=== PATIENT | female | born 1980 | race Caucasian/White ===

== ENCOUNTER → 2017-12-04 12:04 | Outpatient (CLI) | payer MEDICAID, SELFPAY ==
[2017-12-04 12:07] LABS: Microscopic, Urine URINE MICROSCOPIC (MICROSCOPIC)
[2017-12-04 12:29] LABS: Basophils % 0.3 % (0.1-2.0); Eosinophils # 0.1 K/mm3 (0.0-0.4); Eosinophils % 0.8 % (0.1-12.0); Hematocrit 48.5 % (37.0-47.0); Hemoglobin 15.3 g/dL (12.2-16.2); Lymphocytes # 3.2 K/mm3 (0.7-4.5); Lymphocytes % 34.1 K/mm3 (10-50); Mean Corpuscular HGB Conc 31.5 g/dL (31.8-35.4); Mean Corpuscular Hemoglobin 33.4 pg (27.0-31.2); Mean Corpuscular Volume 105.9 fl (81-99); Mean Platelet Volume 7.4 fl (7.4-10.4); Monocytes # 0.5 K/mm3 (0.1-1.0); Monocytes % 4.9 % (1.7-9.3); Neutrophils # 5.6 K/mm3 (1.8-7.8); Neutrophils % 59.9 % (37.0-80.0); Platelet Count 587 K/mm3 (142-424); Red Blood Count 4.58 M/mm3 (4.20-5.40); Red Cell Distribution Width 12.2 % (11.5-17.5); White Blood Count 9.3 K/mm3 (4.8-10.8)
[2017-12-04 12:42] LABS: Appearance,Urine CLEAR (Clear); Bilirubin,Urine Negative (Negative); Blood, Urine Negative (Negative); Color,Urine YELLOW (Yellow); Glucose,Urine (UA) Negative (Negative); Ketones,Urine Negative (Negative); Leukocyte Esterase,Urine Negative (Negative); Nitrate,Urine Negative (Negative); Protein,Urine Negative (Negative); Specific Gravity, Urine <= 1.005 (1.005-1.030); Urobilinogen,Urine 0.2 EU/dl (0.2)
[2017-12-04 12:43] LABS: Activated Partial Thrombo Time 25.2 seconds (23.6-34.0); INR 0.94 (0.9-1.1); Prothrombin Time 10.1 seconds (9.4-11.8)
[2017-12-04 12:50] LABS: Alanine Aminotransferase 33 U/L (12-78); Albumin Level 4.3 gm/dL (3.4-5.0); Alkaline Phosphatase 97 U/L (46-116); Anion Gap 9.3 mEq/L (5-15); Aspartate Amino Transferase 20 U/L (15-37); Bilirubin,Total 0.3 mg/dL (0.2-1.0); Blood Urea Nitrogen 6 mg/dL (7-18); Calcium 9.3 mg/dL (8.5-10.1); Carbon Dioxide 28 mmol/L (21.0-32.0); Chloride 101 mmol/L (98-107); Creatinine,Serum 0.85 mg/dL (0.55-1.02); Estimated Glomerular Filt Rate 76 ml/min (>60); GFR (African American) 92 ML/MIN (>60); Globulin 4.4 gm/dl (1.3-3.2); Glucose 118 mg/dL (74-106); Potassium 3.3 mmoL/L (3.5-5.1); Sodium 135 mmol/L (136-145); Total Protein,Serum 8.7 gm/dL (6.4-8.2)
[2017-12-04 12:51] LABS: Squamous Epithelial Cell,Urine Occasional #/hpf (0-5)
== END ==
PROVIDERS: Visit Provider Orthopaedic Surgery
DX: R79.1 Abnormal coagulation profile (principal); R79.89 Other specified abnormal findings of blood chemistry; N39.0 Urinary tract infection, site not specified
CPT/HCPCS: 36415; 80053; 81001; 85025; 85610; 85730

== ENCOUNTER 2025-04-29 15:42 | Outpatient (CLI) | payer MEDICAID, SELFPAY ==
[2025-04-29 17:40] LABS: Hematocrit 44.2 % (37.0-47.0); Hemoglobin 14.8 g/dL (12.2-16.2); Immature Granulocytes % 0.2 %; Mean Corpuscular HGB Conc 33.5 g/dL (31.8-35.4); Mean Corpuscular Hemoglobin 34.5 pg (27.0-31.2); Mean Corpuscular Volume 103.0 fl (81-99); Nucleated Red Blood Cells % 0 %; Platelet Count 378 K/mm3 (142-424); Red Blood Count 4.29 M/mm3 (4.20-5.40); Red Cell Distribution Width-SD 47.8 fL; White Blood Count 9.2 K/mm3 (4.8-10.8)
[2025-04-29 18:43] LABS: Hemoglobin A1C 5.1 % (4.0-6.0)
[2025-04-29 18:46] LABS: Chloride 102 mmol/L (98-107)
[2025-04-29 18:47] LABS: Albumin Level 3.8 g/dl (3.5-5.0); Potassium 4.0 mmoL/L (3.5-5.1); Sodium 139 mmol/L (136-145)
[2025-04-29 18:49] LABS: Alanine Aminotransferase 30 U/L (12-78); Anion Gap 12.0 mEq/L (5-15); Aspartate Amino Transferase 36 U/L (14-36); Blood Urea Nitrogen 13 mg/dl (7-17); Carbon Dioxide 29 mmol/L (22.0-30.0); Creatinine,Serum 0.70 mg/dl (0.52-1.04); Estimated Glomerular Filt Rate 91 ml/min (>60); GFR (African American) 111 ML/MIN (>60)
[2025-04-29 18:50] LABS: Albumin/Globulin Ratio 1.2 (1.1-1.8); Alkaline Phosphatase 78 U/L (38-126); Bilirubin,Total 0.3 mg/dl (0.2-1.3); Calcium 9.6 mg/dl (8.4-10.2); Globulin 3.3 g/dL (1.3-3.2); Glucose 59 mg/dl (74-100); Total Protein,Serum 7.1 g/dl (6.3-8.2)
[2025-04-29 18:53] LABS: Free T4 (Free Thyroxine) 0.74 ng/dl (0.78-2.19)
[2025-04-29 19:04] LABS: T4 (Thyroxine) 5.7 ug/dl (5.53-11.0)
[2025-04-29 19:22] LABS: Ferritin 53.8 ng/ml (6.24-137)
[2025-04-29 19:27] LABS: Thyroid Stimulating Hormone 3.24 uIU/mL (0.465-4.68)
[2025-04-29 19:57] LABS: Vitamin B12 543 pg/mL (239-931)
--- OUTSIDE RECORDS SUMMARY | 2025-04-30 11:23 | XMS_ITS | Clinical Summary ---
Author Organization Healthcare Address [address] [place] [address] Care Team Providers Care Vapor Coater Name Role Phone Unavailable Primary Care Provider [...]
== END 2025-04-29 23:59 | disposition home or self-care (01) ==
LOC: LAB.DROPOF 04-30 11:20
PROVIDERS: PCP Nurse Practitioner Family; Visit Provider Nurse Practitioner Family
DX: R63.4 Abnormal weight loss (principal); L65.9 Nonscarring hair loss, unspecified; R19.7 Diarrhea, unspecified
CPT/HCPCS: 80053; 80074; 82607; 82728; 83036; 84436; 84439; 84443; 84481; 85025; 86376; 86800; 87389; 87491; 87563; 87591; 87661

== ENCOUNTER 2025-04-30 09:57 | Outpatient (CLI) | payer MEDICAID, SELFPAY ==
--- OUTSIDE RECORDS SUMMARY | 2025-04-30 10:02 | XMS_ITS | Clinical Summary ---
Author Organization Healthcare Address [address] [place] [address] Care Team Providers Care Baker Helper Name Role Phone Unavailable Primary Care Provider Unavailabl e Family History Medical History Relation Name Comments Hypertension Other 1 Other cancer Other 2 Heart Problem Other 3 Relation Name Status Comments Other 1 Other 2 Other 3 Social History Tobacco Use Types Packs/Day Years Used Date Smoking Tobacco: Every Day Alcohol Use Standard Drinks/Week Comments No 0 (1 standard drink = 0.6 oz pur e alcohol) Comments Unknown Sex and Gender Information Value Date Recorded Sex Assigned at Not on file Legal Sex Female 7:19 PM EDT Gender Identity Not on file Sexual Orientation Not on file Last Filed Vital Signs Vital Sign Reading Time Taken Comments Blood Pressure - - Pulse - - Temperature - - Respiratory Rate - - Oxygen Saturation - - Inhaled Oxygen Concentration - - Weight 71.2 kg (157 lb 0.2 oz) 12/08/2015 3:15 P M EST Height 170.2 cm (5' 7 ) 12/08/2015 3:15 PM EST Body Mass Index 24.59 12/08/2015 3:15 PM EST Plan of Treatment Not on file
== END 2025-04-30 23:59 | disposition home or self-care (01) ==
LOC: LAB 09:58
PROVIDERS: PCP Nurse Practitioner Family; Visit Provider Nurse Practitioner Family
DX: R19.7 Diarrhea, unspecified (principal)
CPT/HCPCS: 80053; 80074; 82607; 82728; 83036; 84436; 84439; 84443; 84481; 85025; 86376; 86800; 87045; 87389; 87491; 87493; 87563; 87591; 87661

== ENCOUNTER 2025-05-05 13:28 | Outpatient (CLI) | payer MEDICAID, SELFPAY ==
--- OUTSIDE RECORDS SUMMARY | 2025-05-05 13:31 | XMS_ITS | Clinical Summary ---
Author Organization Healthcare Address [address] [place] [address] Care Team Providers Care Process Engineering Technician Name Role Phone Unavailable Primary Care Provider [...]
--- NOTE | 2025-05-05 14:00 | US_ITS ---
FINAL REPORT CLINICAL HISTORY: gross hematuria, hx of kidney stones-- urinary bladder FINDINGS: ULTRASOUND BLADDER WITH POST VOID RESIDUAL Bladder volumes were estimated based on 3 dimensional measurements, pre- and postvoid. Prevoid bladder volume: 160 mls Postvoid bladder volume: 24 mls. The postvoid bladder wall appears diffusely thickened. No discrete localized mass visualized. IMPRESSION: Estimated bladder volumes as above with small postvoid residual . Reviewed, Interpreted and Dictated by Usama Schwarz MD Transcribed by Viv Salas Authenticated and [facility]
--- NOTE | 2025-05-05 14:30 | US_ITS ---
FINAL REPORT TECHNIQUE: Sonographic images of the thyroid were obtained. CLINICAL HISTORY: Thyroid tenderness / hair loss COMPARISON: None FINDINGS: THYROID ULTRASOUND The right thyroid gland measures 3.6 cm. The left thyroid gland measures 3.5 cm. The parenchyma shows normal echogenicity. No dominant mass is seen. There may be mildly increased vascularity within both lobes, but no localized abnormality. IMPRESSION: Unremarkable thyroid evaluation. Reviewed, Interpreted and Dictated by Usama Schwarz MD Transcribed by Antonia Tyler Authenticated and . [facility]
--- NOTE | 2025-05-05 14:41 | XR_ITS ---
FINAL REPORT CLINICAL HISTORY: chronic neck pain, grinding limited rom muscle spasms COMPARISON: None FINDINGS: CERVICAL SPINE 6 views of the cervical spine were obtained. There is no acute fracture. There is no malalignment. The vertebrae are normal in height. There is moderate disc space narrowing C5-6 and C6-7. There are small posterior osteophytes C5-6 and C6-7. There is reversal of the normal cervical lordosis. The neural foramina are adequately patent. IMPRESSION: Hypertrophic changes of degenerative disc disease C5-6 and C6-7. Reviewed, Interpreted and Dictated by Usama Schwarz MD Transcribed by Antonia Tyler Authenticated and [facility]
--- NOTE | 2025-05-05 14:41 | XR_ITS ---
FINAL REPORT CLINICAL HISTORY: right foot injury, pain COMPARISON: None FINDINGS: RIGHT FOOT Three views of the right foot were obtained. There is no acute fracture or dislocation. The joint spaces appear normal. There is a lucent focus in the anterior calcaneus measuring 2 cm in diameter. This may represent a cyst or intraosseous lipoma. There is no soft tissue abnormality. IMPRESSION: 2 cm lucent focus in the anterior calcaneus appears to be nonaggressive, cyst versus intraosseous lipoma. Reviewed, Interpreted and Dictated by Usama Schwarz MD Transcribed by Antonia Tyler Authenticated and [facility]
--- NOTE | 2025-05-05 15:00 | US_ITS ---
FINAL REPORT TECHNIQUE: Ultrasound images of the kidneys were obtained. CLINICAL HISTORY: Hematuria, history of stones COMPARISON: None FINDINGS: Limited images of the liver parenchyma demonstrate normal echogenicity. The right kidney measures 11.6 cm in length. The left kidney measures 10.8 cm in length. There is normal echogenicity. There is no hydronephrosis. There is normal cortical thickness. There are tiny echogenic foci in both kidneys, stones versus calyceal margins. IMPRESSION: Tiny echogenic foci in both kidneys, stones versus calyceal margins. Reviewed, Interpreted and Dictated by Usama Schwarz MD Transcribed by Antonia Tyler Authenticated and [facility]
== END 2025-05-05 23:59 | disposition home or self-care (01) ==
LOC: RAD 13:29
PROVIDERS: PCP Nurse Practitioner Family; Visit Provider Nurse Practitioner Family
DX: M47.812 Spondylosis without myelopathy or radiculopathy, cervical region (principal); S99.921A Unspecified injury of right foot, initial encounter; E07.9 Disorder of thyroid, unspecified; L65.9 Nonscarring hair loss, unspecified; R93.422 Abnormal radiologic findings on diagnostic imaging of left kidney; R93.421 Abnormal radiologic findings on diagnostic imaging of right kidney; R93.6 Abnormal findings on diagnostic imaging of limbs; R39.198 Other difficulties with micturition; R31.0 Gross hematuria; Z87.442 Personal history of urinary calculi
CPT/HCPCS: 72050; 73630; 76536; 76770; 76830; 76857

== ENCOUNTER 2025-05-15 08:49 | Outpatient (CLI) | payer MEDICAID, SELFPAY ==
--- OUTSIDE RECORDS SUMMARY | 2025-05-15 08:58 | XMS_ITS | Clinical Summary ---
Author Organization Healthcare Address [address] [place] [address] Care Team Providers Care Ticket Puller Name Role Phone Unavailable Primary Care Provider [...]
--- NOTE | 2025-05-15 09:00 | MR_ITS ---
FINAL REPORT TECHNIQUE: Multiplanar and multisequence imaging of the brain was obtained without contrast. CLINICAL HISTORY: abnormal MRI of brain, hx of stroke. headaches COMPARISON: None FINDINGS: Brain parenchymal: There is no mass effect or midline shift. There is a 10 mm T2 hyperintense round lesion in the left basal ganglia, nonspecific. This does not have an appearance suggesting an acute infarct. There are a few other very small punctate foci of increased signal in the white matter bilaterally. Note is made of a low-lying right cerebellar inferior tonsil. Ventricles: The ventricles are symmetric in size and configuration without hydrocephalus. Extra-axial spaces: No extra-axial fluid collections. Diffusion imaging: No areas of restricted diffusion to suggest acute infarct. Flow voids: Flow voids within the major intracranial vessels are preserved. Soft tissues: Soft tissues are without acute abnormality. IMPRESSION: 10 mm T2 hyperintense round lesion in the left basal ganglia, nonspecific. This lesion is of uncertain etiology, and may be secondary to infection, inflammatory change, or neoplasm. Recommend direct comparison with prior examinations. If not available, consider a repeat MRI of the head with contrast. Reviewed, Interpreted and Dictated by Josey Toussaint MD Transcribed by Rosalie Malave Authenticated and [facility]
== END 2025-05-15 23:59 | disposition home or self-care (01) ==
PROVIDERS: PCP Nurse Practitioner Family; Visit Provider Nurse Practitioner Family
DX: G93.89 Other specified disorders of brain (principal); R90.89 Other abnormal findings on diagnostic imaging of central nervous system; R63.4 Abnormal weight loss; R51.9 Headache, unspecified; Z86.73 Personal history of transient ischemic attack (TIA), and cerebral infarction without residual deficits
CPT/HCPCS: 70551

== ENCOUNTER 2025-05-28 06:45 | Outpatient (CLI) | payer MEDICAID, SELFPAY ==
--- OUTSIDE RECORDS SUMMARY | 2025-05-28 06:47 | XMS_ITS | Clinical Summary ---
Author Organization Healthcare Address [address] [place] [address] Care Team Providers Care Straight Ruling Machine Operator Name Role Phone Unavailable Primary Care Provider [...]
--- NOTE | 2025-05-28 07:00 | MR_ITS ---
FINAL REPORT TECHNIQUE: Multiplanar and multisequence imaging of the brain was obtained before and after contrast administration. CLINICAL HISTORY: Abnormal MRI. HX STROKE. HEADACHE COMPARISON: 05/15/2025 FINDINGS: There is no mass effect or midline shift. There is no hydrocephalus. There has been no significant change in 9 mm lesion in the left basal ganglia which is T2 hyperintense and mildly hypointense on T1-weighted imaging. There are a few additional foci of T2 abnormal signal in the periventricular white matter which are stable. Posterior fossa is without acute abnormality. Small abnormality in the medial left cerebellum is stable. On diffusion-weighted imaging there is no restricted diffusion. There is no pathologic enhancement on postcontrast imaging. IMPRESSION: No acute abnormality. Stable abnormality in the left basal ganglia as stated on prior exam which may be related to infectious or inflammatory process, low-grade neoplasm or possible demyelinating disease. Recommend close interval follow-up. Reviewed, Interpreted and Dictated by Josey Toussaint MD Transcribed by Kathleen Tomas Authenticated and [facility]
[2025-05-28] MEDS: GADOTERIDOL INJ 20ML SYRINGE 14 ML IV (07:32)
[2025-05-28] MEDS: SODIUM CHLORIDE 0.9% 10ML SYR (RAD ONLY) 10 ML IV (07:32)
== END 2025-05-28 23:59 | disposition home or self-care (01) ==
LOC: RAD 06:46
PROVIDERS: PCP Nurse Practitioner Family; Visit Provider Nurse Practitioner Family
DX: R90.89 Other abnormal findings on diagnostic imaging of central nervous system (principal); R93.0 Abnormal findings on diagnostic imaging of skull and head, not elsewhere classified; R51.9 Headache, unspecified
CPT/HCPCS: 70553; A9576

== ENCOUNTER 2025-07-03 08:03 | Outpatient (CLI) | payer MEDICAID, SELFPAY ==
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
--- OUTSIDE RECORDS SUMMARY | 2025-06-06 13:50 | XMS_ITS | Encounter Summary ---
Author Organization [facility] Address [address] [place] [address] Care Team Providers Care International Coordinator Name Role Phone Maegan Benjamin FINAL ASSEMBLY INSPECTOR Primary Care Provider +1- [phone] Reason for Visit * Reason Comments Follow-up * Consultation (Urgent) - Closed Specialty Diagnoses / Procedures Referred By Savannah t Referred To Contact Hand Surgery Diagnoses Laceration involving tendon Bo Perez MD [address] [address] Phone: tel: fax: [facility] [address] [place] [address] Phone: tel: fax: Referral ID Status Reason Start Date Expiration Date V isits Requested Visits Authorized [id number] Closed Specialty Services Required 05/30/2025 11/29/2026 1 1 Encounter Details Date Type Department Care Team (Late st Contact Info) Description 06/06/2025 1:50 PM EDT Office Visit [facility] [address] [place] [address] Antonia Arora PA [address] [address] Laceration of right forearm, initial [...] belly laceration that was repaired in asimple [id number] fashion. Patient was then paced in the [...] form which was reviewed and scanned into [employer]. Negative for bleeding disorders, clotting disorders or [...] weakness right hand Exam complicated by pain [place]: Media Information RESULTS: IMAGING: I have personally reviewed right forearm x-rays from 05/29/2025 and there is no bony abnormalities per my personal report ASSESSMENT/PLAN: Lacey Mello is a 44 y.o. year-old female presenting for laceration of the right forearm with possible ulnar nerve injury. Patient's examination was difficult secondary to guarding and pain. [place] was normal she could make a fist [...] [facility] KIDNEY SURGERY N/A Kidney Surgery from [facility] [3] No current outpatient medications on file. [...] documented as of this encounter Care Teams International Coordinator Relationship Specialty Start Date End Date Maegan Benjamin APRN [address] [place] [address] PCP - General 05/29/25 documented as of this encounter
--- OUTSIDE RECORDS SUMMARY | 2025-06-17 13:20 | XMS_ITS | Encounter Summary ---
Author Organization [facility] Address [address] [place] [address] Care Team Providers Care Tailor Fitter Name Role Phone Maegan Benjamin APRN Primary Care Provider +1- [phone] Reason for Visit * Reason Comments Follow-up Follow-up Encounter Details Date Type Department Care Team (Late st Contact Info) Description 06/17/2025 1:20 PM EDT Office Visit [facility] [address] [place] [address] Maldonado Martinez MD [address] [address] Laceration of right forearm, initial [...] from the original note were not included. [facility] Department of Surgery Division of Plastic and [...] form which was reviewed and scanned into [employer]. Negative for bleeding disorders, clotting disorders or [...] 05/30/25 after punching a window while intoxicated. [place] Kaleigh was repeated today, which demonstrates scattered [...] Date BACK SURGERY N/A [facility] KIDNEY SURGERY N/A Kidney Surgery from [facility] [3] Current Outpatient Medications: amitriptyline (Elavil) 10 [...] documented as of this encounter Care Teams Tailor Fitter Relationship Specialty Start Date End Date Maegan Benjamin APRN [address] [place] [address] PCP - General 05/29/25 documented as of this encounter
--- NOTE | 2025-07-03 08:06 | XR_ITS ---
FINAL REPORT CLINICAL HISTORY: right wrist pain COMPARISON: None FINDINGS: RIGHT WRIST Three views demonstrate no acute fracture or dislocation. The visualized joint spaces are normally aligned. The soft tissues are unremarkable. IMPRESSION: No acute bony abnormality. Reviewed, Interpreted and Dictated by Usama Schwarz MD Transcribed by Viv Salas Authenticated and [facility]
--- NOTE | 2025-07-03 08:06 | XR_ITS ---
FINAL REPORT CLINICAL HISTORY: right forearm pain COMPARISON: None FINDINGS: 2 views of the right forearm were obtained. There is no acute fracture or dislocation. The joints are intact. There are no soft tissue abnormalities. IMPRESSION: No acute process. Reviewed, Interpreted and Dictated by Usama Schwarz MD Transcribed by Viv Salas Authenticated and [facility]
--- OUTSIDE RECORDS SUMMARY | 2025-07-03 08:06 | XMS_ITS | Encounter Summary ---
Author Organization Healthcare Address [address] [place] [address] Care Team Providers Care Educational Resource Center Teacher Name Role Phone Maegan Benjamin APRN Primary Care Provider +1- [phone] Encounter Details Date Type Department Care Team (Latest Contact Info) Description 05/29/2025 Travel Social History Tobacco Use Types Packs/Day Years Used Date Smoking Tobacco: Never Assessed Comments Unknown Sex and Gender Information Value Date Recorded Sex Assigned at Female 06/04/2025 7:39 AM EDT Legal Sex Female 7:19 PM EDT Gender Identity Not on file Sexual Orientation Not on file documented as of this encounter Plan of Treatment Not on file documented as of this encounter Visit Diagnoses Not on filedocumented in this encounter Care Teams Educational Resource Center Teacher Relationship Specialty Start Date End Date Maegan Benjamin APRN [address] [place] [address] PCP - General 05/29/25 documented as of this encounter
--- OUTSIDE RECORDS SUMMARY | 2025-07-03 08:07 | XMS_ITS | Encounter Summary ---
Author Organization [facility] Address [address] [place] [address] Care Team Providers Care Desktop Support Associate Name Role Phone Maegan Benjamin APRN Primary Care Provider +1- [phone] Encounter Details Date Type Department Care Team (Latest Contact Info) Description 05/30/2025 Travel Social History Tobacco Use Types Packs/Day Years Used Date Smoking Tobacco: Never Assessed Comments Unknown Sex and Gender Information Value Date Recorded Sex Assigned at Female 06/04/2025 7:39 AM EDT Legal Sex Female 7:19 PM EDT Gender Identity Not on file Sexual Orientation Not on file documented as of this encounter Functional Status * Calculated C-SSRS Risk Score (Lifetime/Recent) Answer Date of Assessment Author No Risk Indicated 05/30/2025 7:45 AM Justa Plascencia RN * Question Answer Date of Assessment Author 1. Wish to be (Past 1 Month) No 025 7:45 AM Justa Plascencia RN 2. Non-Specific Active Suici suzy Thoughts (Past 1 Month) No 05/30/2025 7:45 AM Justa Plascencia RN 6. Suicidal Behavior (Lifetime) No 7:45 AM Justa Plascencia RN documented as of this encounter Plan of Treatment Not on file documented as of this encounter Visit Diagnoses Not on filedocumented in this encounter Care Teams Desktop Support Associate Relationship Specialty Start Date End Date Maegan Benjamin APRN [address] [place] [address] PCP - General 05/29/25 documented as of this encounter
--- OUTSIDE RECORDS SUMMARY | 2025-07-03 08:07 | XMS_ITS | Encounter Summary ---
Author Organization Healthcare Address [address] [place] [address] Care Team Providers Care Medical Research Associate Name Role Phone Maegan Benjamin APRN Primary Care Provider +1- [phone] Encounter Details Date Type Department Care Team (Late st Contact Info) Description 06/03/2025 Telephone [facility] [address] [place] [address] Antonia Arora PA [address] [address] Social History Tobacco Use Types Packs/Day Years Used Date Smoking Tobacco: Never Assessed Comments Unknown Sex and Gender Information Value Date Recorded Sex Assigned at Female 06/04/2025 7:39 AM EDT Legal Sex Female 7:19 PM EDT Gender Identity Not on file Sexual Orientation Not on file documented as of this encounter Miscellaneous Notes * Telephone Encounter - Niko Giles - 06/03/2025 10:01 AM EDT Called pt. Left vm with date and time for upcoming appointment with Antonia APARICIO. Number left tocall if changes needed. documented in this encounter Plan of Treatment Not on file documented as of this encounter Visit Diagnoses Not on filedocumented in this encounter Care Teams Medical Research Associate Relationship Specialty Start Date End Date Maegan Benjamin APRN [address] [place] [address] PCP - General 05/29/25 documented as of this encounter
--- OUTSIDE RECORDS SUMMARY | 2025-07-03 08:08 | XMS_ITS | Encounter Summary ---
Author Organization Healthcare Address [address] [place] [address] Care Team Providers Care Dietary Services Manager Name Role Phone Maegan Benjamin APRN Primary Care Provider [phone]- [phone] Reason for Visit * Reason Onset Date Comments HCN - Patient Message 06/03/2025 Encounter Details Date Type Department Care Team (Late st Contact Info) Description 06/03/2025 Telephone [facility] [address] [place] [address] Antonia Arora, [place] [address] [phone] HCN - Patient Message Social History Tobacco Use Types Packs/Day Years Used Date Smoking Tobacco: Never Assessed Comments Unknown Sex and Gender Information Value Date Recorded Sex Assigned at Female 06/04/2025 7:39 AM EDT Legal Sex Female 7:19 PM EDT Gender Identity Not on file Sexual Orientation Not on file documented as of this encounter Miscellaneous Notes * Telephone Encounter - Evie Lopez RN - 06/03/2025 3:03 PM EDT Called and let her know it would be a good idea if someone can bring her, let her know its not a surgical appointment but it would still be good to have a milk tanker driver since one of her arms is injured. * Telephone Encounter - MazaEmileeMonserrat Armida - 06/03/2025 2:58 PM EDT Clinical Concern/Question Reason for Call: Maite-this patient is calling asking if she needs a milk tanker driver for her appt on 06/06/25 or if she can drive her self to/from appt. Please call to advise Best contact number: [phone] (mobile) Optimal time of day to reach caller: ANYTIME Additional comments/information from caller: None Note: Please do not reply to this message. Follow-up communication and further actions as a result of this message need to be communicated with the patient directly, if the patient is not active onMyChart. If the patient is active on MyChart, they will receive notification of the communication/outcome via [employer]. documented in this encounter Plan of Treatment Not on file documented as of this encounter Visit Diagnoses Not on filedocumented in this encounter Care Teams Dietary Services Manager Relationship Specialty Start Date End Date Maegan Benjamin APRN [address] [place] [address] PCP - General 05/29/25 documented as of this encounter
--- OUTSIDE RECORDS SUMMARY | 2025-07-03 08:09 | XMS_ITS | Encounter Summary ---
Author Organization Healthcare Address [address] [place] [address] Care Team Providers Care Crt Name Role Phone Maegan Benjamin APRN Primary Care Provider +1- [phone] Encounter Details Date Type Department Care Team (Latest Contact Info) Description 06/06/2025 Travel Social History Tobacco Use Types Packs/Day [...] Diagnoses Not on filedocumented in this encounter Additional Health Concerns Assessment Noted Time A Body Mass Index follow-up plan has been documented for the patient 06/06/2025 3:14 PM EDT documented as of this encounter Care Teams Crt Relationship Specialty Start Date End Date Maegan Benjamin APRN [address] [place] [address] PCP - General 05/29/25 documented as of this encounter
--- OUTSIDE RECORDS SUMMARY | 2025-07-03 08:09 | XMS_ITS | Encounter Summary ---
Author Organization Healthcare Address [address] [place] [address] Care Team Providers Care Student Success Coach Name Role Phone Maegan Benjamin APRN Primary Care Provider +1- [phone] Reason for Visit * Reason Onset Date Comments Med Refill 06/05/2025 Encounter Details Date Type Department Care Team (Late st Contact Info) Description 06/05/2025 Refill [facility] [address] [place] [address] Antonia Arora, [place] [address] [phone] Social History Tobacco Use Types Packs/Day Years [...] on filedocumented in this encounter Care Teams Student Success Coach Relationship Specialty Start Date End Date Maegan Benjamin APRN [address] [place] [address] PCP - General 05/29/25 documented as of this encounter
--- OUTSIDE RECORDS SUMMARY | 2025-07-03 08:10 | XMS_ITS | Encounter Summary ---
Author Organization Healthcare Address [address] [place] [address] Care Team Providers Care Spanish Moss Picker Name Role Phone Maegan Benjamin APRN Primary Care Provider +1- [phone] Encounter Details Date Type Department Care Team (Latest Contact Info) Description 06/17/2025 Travel Social History Tobacco Use Types Packs/Day [...] documented as of this encounter Care Teams Spanish Moss Picker Relationship Specialty Start Date End Date Maegan Benjamin APRN [address] [place] [address] PCP - General 05/29/25 documented as of this encounter
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
== END 2025-07-03 23:59 | disposition home or self-care (01) ==
LOC: RAD 08:04
PROVIDERS: PCP Nurse Practitioner Family; Visit Provider Physician Assistant Surgical
DX: M79.631 Pain in right forearm (principal); M25.531 Pain in right wrist
CPT/HCPCS: 73090; 73110

== ENCOUNTER 2025-07-21 11:00 | Outpatient (RCR) | payer MEDICAID, SELFPAY ==
--- NOTE | 2025-07-09 15:56 | HMH.OTOPEV ---
OT Evaluation Rehab OT Outpatient Eval Start: 07/09/25 14:52 Freq: Status: Active Protocol: Document 07/09/25 15:26 JENNY (Rec: 07/09/25 15:55 JENNY [id number]) E-signed By Marita Keita, OT Outpatient Therapy Subjective History Subjective History Pt is a 44 yr old female who presents to initial OT evaluation due to R hand weakness, numbness, and tingling. Pt reported they fell through a glass door and severed the nerve along the medial side at elbow along with some tendons. Pt reported the accident occurred roughly on June 06. Pt reported she has had spasms and pins/needles feeling in R hand and pinky side of hand. Pt has reported this feeling has improved slightly. Pt reported the pain has not been as sharp- more dull and achy with more feeling. Pt reported they are not allergic to latex and do not have a pacemaker. Pt reports they do not have a hx of a cancer dx, but have found spots on brain but bloodwork has not shown up it was cancer. Pt reports they had stitched the muscles and arm back in R elbow. Pt reports wearing a sling for 3 weeks, just recently fully out of sling. Pt is R hand dominant. 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 Pt could benefit from skilled OP OT services and interventions in order to address functional limitations in occupational performance and regain Ind in ADLs and IADLs to improve QOL and optimal occupational performance. Pt was sent home with light resistance theraputty and tendon glides. Pt given overview sheet of each exercises. Pt demo good understanding of exercises and able to demo back to therapist performance. New diagnosis of No: Has spots on brain, but has not came back as cancer cancer in past 12 in bloodwork months? Chief Complaint Pain,Spasms,Weakness,Decreased Supervisor Customer Complaint Service Strength,Decreased Coordination Symptom Type Ache,Sharp,Numbness,Tingling,Shooting Symptoms Relieved By Rest/Positioning,OTC Meds,Prescription Meds Symptoms Aggravated Physical Activity,Lifting By Prior Functional None Limitations Current Functional Lifting,Housework,Dressing,Driving,Sleeping,Recreation Limitations Activity Symptom Description Constant but Variable,Pain at Rest Level of pain today 8 (0-10) Pain scale - at its 4 best (0-10) Pain scale - at its 10 worst (0-10) Wrist/Hand Eval Wrist Range of Motion Right Wrist Limitations of Muscle Weakness,Pain Range of Motion Wrist Extension 70 Active Range of Motion (degrees) Wrist Extension 70 Passive Range of Motion (degrees) Wrist Flexion Active 80 Range of Motion ( degrees) Wrist Flexion 80 Passive Range of Motion (degrees) Wrist Radial 20 Deviation Active Range of Motion ( degrees) Wrist Radial 20 Deviation Passive Range of Motion ( degrees) Wrist Ulnar 30 Deviation Active Range of Motion ( degrees) Wrist Ulnar 30 Deviation Passive Range of Motion ( degrees) Finger Range of Motion Right Little Finger Finger ROM Muscle Weakness,Pain Limitations Finger 80 Metacarpophalangeal Flexion Active Range of Motion (degrees) Finger 90 Metacarpophalangeal Flexion Passive Range of Motion ( degrees) Finger 0 Metacarpophalangeal Extension Active Range of Motion ( degrees) Finger Proximal 75 Interphalangeal Flexion Active Range (degrees) Finger Proximal 80 Interphalangeal Flexion Passive Range (degrees) Finger Proximal 0 Interphalangeal Extension Active Range (degrees) Finger Distal 75 Interphalangeal Flexion Active Range of Motion (degrees) Finger Distal 80 Interphalangeal Flexion Passive Range Motion ( degrees) Finger Distal 0 Interphalangeal Extension Active Range Motion ( degrees) Wrist Manual Muscle Testing Right Wrist Extension 3- Fair- Strength Grade Wrist Flexion 3- Fair- Strength Grade Wrist Radial 3- Fair- Deviation Strength Grade Wrist Ulnar 3- Fair- Deviation Strength Grade Hand/Finger Manual Muscle testing Right Little Finger Finger Flexion 3- Fair- Strength Grade Finger Extension 3- Fair- Strength Grade Supervisor Customer Complaint Service/Pinch Strength Left Supervisor Customer Complaint Service Strength 70 Measurement (lbs) Right Supervisor Customer Complaint Service Strength 33 Measurement (lbs) QuickDASH Activities Please rate your ability to do the following activities in the last week by selecting the number below the appropriate response. 1. Open a tight or Unable new jar. 2. Do heavy Unable state inspector (e. g., wash alexander, floors). 3. Carry a shopping Severe difficulty bag or briefcase. 4. Wash your back. Severe difficulty 5. Use a knife to Severe difficulty cut food. 6. Recreational Unable activities in which you take some force or impact through your arm, shoulder, or hand (e.g., golf, hammering, tennis, etc.). 7. During the past Extremely week, to what extent has your arm, shoulder or hand problem interfered with your normal social activities with family, friends , neighbors or groups? 8. During the past Unable week, were you limited in your work or other regular daily activites as a result of your arm, shoulder or hand problem? 9. Arm, shoulder or Severe hand pain. 10. Tingling (pins Mild and needles) in your arm, shoulder or hand. 11. During the past So much difficulty that I can't sleep week, how much difficulty have you had sleeping because of the pain in your arm, shoulder or hand? Quick DASH 48 OT Patient Goals OT Patient Goals OT Short Term 1. Pt will improve assistant loan processor strength in R hand to 40 lbs, Patient Goals by reassessment. 2. Pt will improve endurance in TE to R hand for 15 minutes prior to rest, by reassessment. 3. Pt will improve subjective pain to 7/10 at worst in R hand, by reassessment. 4. Pt will be IND in HEP of theraputty and tendon glides to improve occupational performance, by reassessment. 5. Pt will improve MMT of R hand to 3+/5, by reassessment. 6. Pt will improve QuickDash Activities score to 40 or below, by reassessment. OT Direct Chill Caster Patient 1. Pt will improve assistant loan processor strength in R hand to 50 lbs. Goals 2. Pt will improve endurance in TE to R hand for 25 minutes prior to rest. 3. Pt will improve subjective pain to 5/10 at worst in R hand. 4. Pt will be IND in HEP of advanced strengthening exercises to improve occupational performance. 5. Pt will improve MMT of R hand to 4-/5. 6. Pt will improve QuickDash Activities score to 35 or below. OT Outpatient Assessment Impairments Problems/Impairments Impaired Strength,Impaired Endurance,Impaired Lifting, Impaired Dressing,Impaired Shower/Bathing,Impaired Household Care,Impaired Recreational Activities, Subjective C/O Pain,Impaired Self Care/Self Management Prognosis Rehab Potential Good Comment Pt could benefit from skilled OP OT services and interventions in order to address above deficits and improve QOL and optimal occupational performance in ADLs and IADLs. Clinical Impression Consistent with Yes Diagnosis Outpatient Therapy Plan of Care Treatment Plan May Include Therapeutic Exercise Yes Including Home Exercise Program Manual Therapy Yes Techniques Neuromuscular Re- Yes education Therapeutic Yes Activities to Return to Previous Functional/Work Level ADL/Self Care Yes Education Thermal Modalities Yes Electrical Yes Stimulation Ultrasound/ Yes Phonophoresis Iontophoresis Yes Parrafin Yes Orthotics/Bracing/ Yes Splinting Group Therapy for Yes Medicare Eval/Re-Eval Yes Frequency Times per week 2 Duration Number of Weeks 6 Addendums This patient is a No candidate for social or vocational rehab ? Patient/Guardian Yes verbally acknowledges understanding of treatment program and consents to further treatment? Patient/Guardian Yes verbally acknowledges understanding of diagnosis, prognosis and goals for treatment? Eval Complexity OT Charge 98996 - Moderate Complexity Shoulder/Elbow Eval Shoulder Objective Measurements Elbow Objective Measurements PHYSICIAN CERTIFICATION: I certify the specified therapy services for Lacey Mello are required, authorized, and reviewed every 30 days.
== END 2025-07-21 23:59 | disposition home or self-care (01) ==
LOC: OT 11:00
PROVIDERS: PCP Nurse Practitioner Family; Visit Provider Physician Assistant Surgical
DX: R20.2 Paresthesia of skin (principal)
CPT/HCPCS: 97166

== ENCOUNTER 2025-07-30 09:02 | Day surgery (SDC) | payer MEDICAID, SELFPAY ==
--- NOTE | 2025-07-24 16:12 | EXP.HP ---
History of Present Illness *Admission Date: 07/30/25 *History of present illness: Mrs. Mello is a 44-year-old female who is here for diagnostic EGD and colonoscopy. The patient reports nausea and postprandial vomiting. She has early satiety. She also reports some dysphagia that has occurred a few times but is new. She had lost more than 30 pounds but this now fluctuates. She does report generalized abdominal pain and reports a history of ulcers years ago. She has never had an EGD. The patient also struggles with bowel urgency and diarrhea that has been going on for more than 10 years. She has multiple bowel movements daily she also reports a lot of hemorrhoidal bleeding and prolapse. She did have hemorrhoidal surgery years ago. The patient has tried Imodium and recently was started on amitriptyline which helped a little bit. She reports no family history of esophageal, gastric or colon cancer. She reports no family history of colitis or Crohn's disease. The examination is deemed medically necessary for diagnostic EGD and colonoscopy. The patient has been seen, interviewed and examined prior to the procedure by both myself and the anesthesia provider. [facility] Disclaimer: The information contained in this section may have been updated after the patient was seen, as this information can be updated by other users. Medical History Fusion of lumbar spine Surgical History History of hip surgery B/L Hx of eye surgery exploratory eye surgery [place] teeth extracted H/O dilation and curettage History of lumbar spinal fusion Family History Other Cancer Heart attack Hyperlipidemia Hypertension Social History Smoking Status: Current every day smoker tobacco type: cigarettes packs per day: 1 quit status: considering quitting alcohol intake: never substance use type: denies use current occupational status: disabled Travel in the last 8 weeks?: None Have you lived/traveled outside US in past 30 days?: No Contact w/someone who lives/traveled outside US past 30 days?: No Exposure to someone with infectious disease in past 14 days?: No Do you have a fever (greater than 100.4 F or 38 C)?: No Have you tested positive for COVID-19?: No Exposed to someone with COVID-19 in past 14 days?: No Do you have a sore throat?: No Do you have a cough?: No Do you have any weakness?: No Do you have any diarrhea?: No Are you experiencing any unusual bleeding?: No Do you have any muscle aches/pain?: No Do you have any abdominal pain?: No Are you experiencing loss of taste or smell?: No Other Medical History Have you received the Pneumonia Vaccine: No Review of Systems Review of Systems Review of systems (narrative): Negative *Cardiovascular Comments: Negative *Gastrointestinal Comments: Negative *Genitourinary Comments: Negative *Musculoskeletal Comments: Negative *Neurologic Comments: Negative Meds Home Medications and Allergies Home Medications ?Medication ?Instructions ?Recorded ?Confirmed ?Type amitriptyline 10 mg tablet 10 mg PO HS #30 tabs 05/23/25 07/30/25 Rx meloxicam 15 mg tablet 15 mg PO DAILY #30 tabs 05/23/25 07/30/25 Rx diclofenac sodium 1 % topical gel 2 g topical QID #200 grams 06/30/25 07/30/25 Rx calcium polycarbophil 625 mg 1,250 mg PO DAILY 07/09/25 07/30/25 History tablet (FiberCon) citalopram 20 mg tablet 20 mg PO DAILY 30 days #30 tabs 07/10/25 07/30/25 Rx olanzapine 10 mg tablet 10 mg PO ONCE 30 days #30 tabs 07/10/25 07/30/25 Rx omeprazole 20 mg capsule,delayed 20 mg PO DAILY #30 caps 07/21/25 07/30/25 Rx release propranolol 40 mg tablet 40 mg PO BID headache #60 tabs 07/22/25 07/30/25 Rx rimegepant 75 mg disintegrating 75 mg PO ONCE PRN migraine 07/22/25 07/30/25 Rx tablet (Nurtec ODT) headache #8 tabs ibuprofen 800 mg tablet 800 mg PO Q6 07/30/25 07/30/25 History tizanidine 2 mg tablet 2 mg PO DAILY 07/30/25 07/30/25 History New Prescriptions to Start Prescriptions: Allergies Allergy/AdvReac Type Severity Reaction Status Date / Time bupropion Allergy Severe Anaphylaxis Verified 07/29/25 13:08 diclofenac AdvReac Intermediate STOMACH Verified 07/29/25 13:08 PAIN cephalexin AdvReac Mild NA-NAUSEA Verified 07/29/25 13:08 ciprofloxacin AdvReac Mild NA-NAUSEA Verified 07/29/25 13:08 erythromycin base AdvReac Mild NA-NAUSEA Verified 07/29/25 13:08 Penicillins AdvReac Mild NA-NAUSEA Verified 07/29/25 13:08 Exam *Routine HEENT Exam Head: Present normocephalic Eye: Present EOMI and PERRL ENT: Present mucous membranes moist *Routine Neck Exam Neck: Present supple *Routine Respiratory Exam Respiratory: Present CTA bilaterally *Routine Cardiovascular Exam Cardiovascular: Present RRR *Routine Abdominal Exam Abdominal: Present soft and normoactive bowel sounds; Absent tenderness *Routine Rectal Exam Rectal:: deferred *Routine Genitalia Exam Genitalia:: deferred *Routine Extremities Exam Extremities: Absent cyanosis, clubbing or edema *Routine Skin Exam Skin: Present warm; Absent rash *Routine Neurological Exam Neurological: Present alert and oriented X3 Assessment and Plan *Assessment and plan (1) Nausea & vomiting: Status: Acute Category: Medical Code(s): R11.2 - Nausea with vomiting, unspecified (2) Fecal urgency: Status: Acute Category: Medical Code(s): R15.2 - Fecal urgency (3) Dysphagia: Status: Acute Category: Medical Code(s): R13.10 - Dysphagia, unspecified (4) Early satiety: Status: Acute Category: Medical Code(s): R68.81 - Early satiety (5) Generalized abdominal pain: Status: Acute Category: Medical Code(s): R10.84 - Generalized abdominal pain (6) Chronic diarrhea: Status: Acute Category: Medical Code(s): K52.9 - Noninfective gastroenteritis and colitis, unspecified Plan A/P: 1. Nausea and vomiting, dysphagia with early satiety for upper endoscopy and diarrhea with hemorrhoidal bleeding for colonoscopy is the preprocedural diagnosis. The patient will be anesthetized/sedated using MAC sedation. The patient has been seen and examined. Cardiac and lung assessment prior to the examination is stable. Proceed with planned diagnostic EGD and colonoscopy.
[2025-07-29 13:30] VITALS: BMI 24.5
--- NOTE | 2025-07-30 06:30 | P.PCN_ITS ---
[facility] Procedure Note Date: 07/30/25 Time: 11:25 Procedure Note:: Colonoscopy Procedure Report: Colonoscopy with cold snare polypectomy, cold biopsies and hemorrhoid band ligation Endoscopist: Cole Campa II, MD Referring physician: MATHEW Carpenter Date of Procedure: July 30, 2025 Equipment: Olympus [id number] adult colonoscope Sedation: MAC sedation Indication: Mrs. Mello is a 44-year-old female who is here for diagnostic EGD and colonoscopy. The patient reports nausea and postprandial vomiting. She has early satiety. She also reports some dysphagia that has occurred a few times but is new. She had lost more than 30 pounds but this now fluctuates. She does report epigastric and generalized abdominal pain and reports a history of ulcers years ago. The patient also reports bloating, gassiness and belching. She does have some globus sensation. She has never had an EGD. The patient also struggles with bowel urgency and diarrhea that has been going on for more than 10 years. She has multiple bowel movements daily she also reports a lot of hemorrhoidal bleeding and prolapse. She did have hemorrhoidal surgery years ago. The patient has tried Imodium and recently was started on amitriptyline which helped a little bit. She reports no family history of esophageal or gastric cancer. She does report that her father may have had colon cancer in his late 40s. She reports no family history of colitis or Crohn's disease. The examination is deemed medically necessary for diagnostic EGD and colonoscopy. Procedure: Prior to the procedure, a history and physical exam was performed, and patient's medications and allergies were reviewed. The risks, benefits and alternatives of the sedation and procedure were discussed with the patient. All questions were answered and informed consent was obtained. The patient was brought to the procedure room. Patient identification and proposed procedure were verified by the physician and the nurse. The patient was placed in a left lateral decubitus position and the scope was passed under direct vision. Throughout the procedure, the patient's blood pressure, pulse, and oxygen saturations were monitored continuously. The colonoscopy was accomplished without difficulty. The patient tolerated the procedure well. Findings: On digital rectal examination there was normal rectal tone. There were no external hemorrhoids. The colonoscope was introduced through the anal canal to the rectum and advanced to the cecum. The ileocecal valve and appendiceal orifice were identified. The scope was advanced a short distance into the ileum which appeared grossly normal. The scope was then withdrawn into the colon. There was a single polyp (7 to 8 mm) in the descending colon removed via cold snare polypectomy. Random cold biopsies were taken from the right colon to rule out microscopic colitis. The remaining cecum, ascending, transverse, descending, sigmoid and rectum were grossly normal. There were no other mucosal abnormalities identified. Upon retroflexion within the rectum there were grade 2-3 internal hemorrhoids. 3 columns of hemorrhoids were banded using 3 bands with excellent ligation effect. The preparation was excellent throughout with [place] Preparation Score of 9. The cecal time was 14 minutes. Impression: 1. Descending colon polyp (7 to 8 mm) 2. Grade 2-3 internal hemorrhoids status post band ligation x 3 Plan: I will follow-up the polyp histology and recommend repeat screening/surveillance colonoscopy again in 5 years if the polyp is adenomatous. I would encourage bulking [id number] FiberCon 2 tablets every morning. If the colon biopsies are normal, we will discuss additional treatment options for her diarrhea (including Viberzi or alosetron).
--- NOTE | 2025-07-30 06:30 | P.PCN_ITS ---
[facility] Procedure Note Date: 07/30/25 Time: 11:05 Procedure Note:: Upper Endoscopy Procedure Report: Esophagogastroduodenoscopy with cold biopsies and TTS balloon dilation Endoscopost: Cole Campa II, MD Referring Physician: MATHEW Sun Date of Procedure: July 30, 2025 Equipment: Olympus [id number] standard upper endoscope Sedation: MAC sedation Indications: Mrs. Mello is a 44-year-old female who is here for diagnostic EGD and colonoscopy. The patient reports nausea and postprandial vomiting. She has early satiety. She also reports some dysphagia that has occurred a few times but is new. She had lost more than 30 pounds but this now fluctuates. She does report epigastric and generalized abdominal pain and reports a history of ulcers years ago. The patient also reports bloating, gassiness and belching. She does have some globus sensation. She has never had an EGD. The patient also struggles with bowel urgency and diarrhea that has been going on for more than 10 years. She has multiple bowel movements daily she also reports a lot of hemorrhoidal bleeding and prolapse. She did have hemorrhoidal surgery years ago. The patient has tried Imodium and recently was started on amitriptyline which helped a little bit. She reports no family history of esophageal or gastric cancer. She does report that her father may have had colon cancer in his late 40s. She reports no family history of colitis or Crohn's disease. The examination is deemed medically necessary for diagnostic EGD and colonoscopy. Procedure: Prior to the procedure, a history and physical exam was performed, and patient's medications and allergies were reviewed. The risks, benefits and alternatives of the sedation and procedure were discussed with the patient. All questions were answered and informed consent was obtained. The patient was brought to the procedure room. Patient identification and proposed procedure were verified by the physician and the nurse. The patient was placed in a left lateral decubitus position and the scope was passed under direct vision. Throughout the procedure, the patient's blood pressure, pulse, and oxygen saturations were monitored continuously. The upper GI endoscopy was accomplished without difficulty. The patient tolerated the procedure well. Findings: The scope was passed directly into the upper esophagus and advanced to the third portion of the duodenum. The post bulbar duodenum and duodenal bulb were normal with normal mucosa and conniventes. 2 cold biopsies were taken from the second portion of the duodenum for the disaccharidase assay. The scope was withdrawn through a normal duodenal bulb and pylorus into the stomach. The antrum was normal. There was reticular mosaic pattern of the body and fundus consistent with mild chronic gastritis and biopsies were obtained along the lesser curvature to rule out H. pylori. Upon retroflexion there was no hiatal hernia. The scope was then withdrawn into the esophagus. There was no evidence of reflux esophagitis or Hoover's. There were no rings, strictures, webs or corrugation. There were tertiary contractions and evidence of mild esophageal dysmotility. The entire esophagus was dilated to 60 [place]/20 mm with a TTS hydrostatic balloon. There was minimal resistance at the cricopharyngeus. The remainder of the esophageal mucosa was normal. Impression: 1. Nonerosive GERD with mild esophageal dysmotility 2. Mild chronic gastritis?rule out H. pylori Plan: I will follow-up the biopsies and discuss the findings with the patient and family. We will discuss treatment options. I will proceed with diagnostic colonoscopy.
[2025-07-30] MEDS: LACTATED RINGERS 1000ML 1,000 ML 50 ML IV (09:46)
[2025-07-30 09:47] VITALS: BP 136/84; PULSE 62; RESP 18; TEMP 36.5; O2SAT 99
[2025-07-30 10:00] LABS: Urine Pregnancy, HCG Qual. Negative (Negative)
--- NOTE | 2025-07-30 10:05 | P.PNANES_ITS ---
[facility] Disclaimer: The information contained in this section may have been updated after the patient was seen, as this information can be updated by other users. Medical History Fusion of lumbar spine Surgical History History of hip surgery B/L Hx of eye surgery exploratory eye surgery [place] teeth extracted H/O dilation and curettage History of lumbar spinal fusion Family History Other Cancer Heart attack Hyperlipidemia Hypertension Social History Smoking Status: Current every day smoker tobacco type: cigarettes packs per day: 1 quit status: considering quitting alcohol intake: never substance use type: denies use current occupational status: disabled Travel in the last 8 weeks?: None Have you lived/traveled outside US in past 30 days?: No Contact w/someone who lives/traveled outside US past 30 days?: No Exposure to someone with infectious disease in past 14 days?: No Do you have a fever (greater than 100.4 F or 38 C)?: No Have you tested positive for COVID-19?: No Exposed to someone with COVID-19 in past 14 days?: No Do you have a sore throat?: No Do you have a cough?: No Do you have any weakness?: No Do you have any diarrhea?: No Are you experiencing any unusual bleeding?: No Do you have any muscle aches/pain?: No Do you have any abdominal pain?: No Are you experiencing loss of taste or smell?: No [facility] Anesthesia Checklist Patient Identification Patient Identification: Arm Band Structural Data Admitted From: Home Planned Operative Procedure/s: EGD/Colonoscopy Consent for Planned Operative Procedure(s) Verified: Yes Verified Documents: Surgical Consent and History and Physical NPO Status Verified Time NPO: 08:00 (finished prep) Additional verifications Anesthesia Reactions: No Airway Assessment Mallampati Score:: Class II C-Spine Mobility Assessed: Yes TMJ Mobility Assessed: Yes Dentition: Good Dentition Neurological Assessment Level of Consciousness: Awake, Alert and Appropriate Anesthesia Plan Anesthesia Risk discussed: Yes Anesthesia Plan: Verified ASA Class: II Anesthesia Type: MAC
[2025-07-30 11:35] VITALS: BP 111/67; PULSE 65; RESP 16; TEMP 36.6; O2SAT 98
[2025-07-30 11:45] VITALS: BP 102/81; PULSE 76; RESP 18; TEMP 36.6; O2SAT 98
[2025-07-30 11:55] VITALS: BP 141/77; PULSE 63; RESP 18; TEMP 36.6; O2SAT 98
[2025-07-30 12:05] VITALS: BP 141/87; PULSE 64; RESP 18; TEMP 36.6; O2SAT 98
[2025-08-04 14:26] LABS: Interpretation Notes (.); Lactase 17.65 (>/= 14.0); Maltase 322.5 (>/= 110.0); Palatinase 22.4 (>/= 8.5); Reference Notes (.); Sucrase 80.79 (>/= 25.0)
== END 2025-07-30 12:05 | disposition home or self-care (01) ==
PROVIDERS: PCP Nurse Practitioner Family; Visit Provider Internal Medicine Gastroenterology
PROC: 0DJ08ZZ Inspection of Upper Intestinal Tract, Via Natural or Artificial Opening Endoscopic (ICD-10-PCS; CPT 45378; principal; 2025-07-30 10:30)
DX: D12.4 Benign neoplasm of descending colon (principal); K21.9 Gastro-esophageal reflux disease without esophagitis; K52.9 Noninfective gastroenteritis and colitis, unspecified; K22.4 Dyskinesia of esophagus; K64.1 Second degree hemorrhoids; K64.2 Third degree hemorrhoids; F17.210 Nicotine dependence, cigarettes, uncomplicated; Z87.11 Personal history of peptic ulcer disease; Z88.1 Allergy status to other antibiotic agents; Z88.6 Allergy status to analgesic agent
CPT/HCPCS: 43239; 43249; 45380; 45385; 46221; 81025; 82657; C1726; C1889; J2003; J2704; J7120

== ENCOUNTER 2025-08-04 14:17 | Outpatient (CLI) | payer MEDICAID, SELFPAY ==
--- OUTSIDE RECORDS SUMMARY | 2025-06-06 12:50 | XMS_ITS | Encounter Summary ---
Author Organization [facility] Address [address] [place] [address] Care Team Providers Care Sales Consulting Director Name Role Phone Maegan Benjamin DIRECTOR RECORDS MANAGEMENT Primary Care Provider +1- [phone] Reason for Visit * Reason Comments Follow-up * Consultation (Urgent) - Closed Specialty Diagnoses / Procedures Referred By Savannah t Referred To Contact Hand Surgery Diagnoses Laceration involving tendon Bo Perez MD [address] [address] Phone: tel: fax: [facility] [address] [place] [address] Phone: tel: fax: Referral ID Status Reason Start Date Expiration Date V isits Requested Visits Authorized [id number] Closed Specialty Services Required 05/30/2025 11/29/2026 1 1 Encounter Details Date Type Department Care Team (Late st Contact Info) Description 06/06/2025 1:50 PM EDT Office Visit [facility] [address] [place] [address] Antonia Arora PA [address] [address] Laceration of right forearm, initial encounter (Primary Dx) Social History Tobacco Use Types Packs/Day Years Used Date Smoking Tobacco: Every Day Cigarettes Smokeless Tobacco: Never Tobacco Cessation:Ready to Q uit: Not Asked; Counseling Given: Not Answered Alcohol Use Standard Drinks/Week Comments No 0 [...] Sign Reading Time Taken Comments Blood Pressure 162/83 06/06/2025 2:04 PM EDT Pulse 91 06/06/2025 2:04 PM EDT Temperature - - Respiratory Rate - - Oxygen Saturation 97% 06/06/2025 2:04 PM EDT Inhaled Oxygen Concentration - - Weight 69.4 kg (153 lb) 06/06/2025 2:04 PM EDT Height 170.2 cm (5' 7 ) 06/06/2025 2:04 PM EDT Body Mass Index 23.96 06/06/2025 2:04 PM EDT documented in this encounter Miscellaneous Notes * Progress Notes - Antonia Arora PA - 06/06/2025 1:50 PM EDT Images from the original note were not included. Hand Surgery Clinic Note CC: Forearm laceration HISTORY OF PRESENT ILLNESS: Lacey Mello is a 44 y.o. Right-hand dominant disabled female who does have history of multiple strokes, chronic back pain, 2 pack per day nicotine use who presented to the emergency department 05/30/2025 with a right forearm laceration after she punched a window while intoxicated. In the emergency department was noted that she may possibly have ulnar nerve injury to the level of intoxication this could not be determined. Was an obvious FCU muscle belly laceration that was repaired in asimple [id number] fashion. Patient was then paced in the splint sent here for continued evaluation and management. Patient is guarding the laceration site pretty vehemently. She is emotionally upset and crying on exam PAST MEDICAL HISTORY: Past Medical History[1] PAST SURGICAL HISTORY: Surgical History[2] MEDICATIONS: Current Medications[3] ALLERGIES: Allergies[4] SOCIAL HISTORY: Social History[5] FAMILY HISTORY Family history is as noted on the history intake form which was reviewed and scanned into [employer]. Negative for bleeding disorders, clotting disorders or anesthesia issues. REVIEW OF SYSTEMS ROS: 14 point review of systems was completed with the patient and documented on written assessmentat this time and was negative except as noted in the HPI. PHYSICAL EXAM: GEN: Healthy appearing, alert, no acute distress SKIN: Normal color, texture; no rashes or lesions HEENT: Normocephalic, no signs of trauma, anicteric, neck with normal ROM PULM: Normal respiratory effort on room air, no audible stridor or wheeze CV: Right upper extremities well-perfused PSYCH: Pleasant and normal affect NEURO: Alert and oriented x 3. Cranial nerves grossly intact, speech intact EXTREMITY: Active and passive range of motion of the flexors is intact small ring long index and thumb global weakness right hand Exam complicated by pain [place]: Media Information RESULTS: IMAGING: I have personally reviewed right forearm x-rays from 05/29/2025 and there is no bony abnormalities per my personal report ASSESSMENT/PLAN: Lacey Mello is a 44 y.o. year-old female presenting for laceration of the right forearm with possible ulnar nerve injury. Patient's examination was difficult secondary to guarding and pain. [place] was normal she could make a fist and her flexors and extensor seem intact. Patient has unusual pattern it her [place] Kaleigh and I think patient has neurapraxia secondary to swelling not a true laceration. I think it is most prudent at this time to give the patient some time for healing and reexamination prior to any surgical intervention. I will have the patient come back to see Dr. Martinez in 2 weeks for reexamination and a new [place] Kaleigh. I have showed the patient how to do some gentle active range of motion exercises in the interim. I think she should have a therapy appointment at her next visit. [1] Past Medical History: Diagnosis Date Anxiety Depression Personal history of other diseases of the circulatory system History of hypertension Personal history of other mental and behavioral disorders History of affective disorder Personal history of other mental and behavioral disorders History of depression Personal history of traumatic brain injury History of concussion [2] Past Surgical History: Procedure Laterality Date BACK SURGERY N/A Back Surgery from [facility] KIDNEY SURGERY N/A Kidney Surgery from [facility] [3] No current outpatient medications on file. No current facility-administered medications for this visit. [4] No Known Allergies [5] Social History Tobacco Use Smoking status: Every Day Substance Use Topics Alcohol use: No Drug use: Never Comment: Drug use: No drug use documented in this encounter Plan of Treatment Not on file documented as of this encounter Visit Diagnoses Diagnosis Laceration of right forearm, initial encounter- Primary documented in this encounter Additional Health Concerns Assessment Noted Time A Body Mass Index follow-up plan has been documented for the patient 06/06/2025 3:14 PM EDT documented as of this encounter Care Teams Sales Consulting Director Relationship Specialty Start Date End Date Maegan Benjamin APRN [address] [place] [address] PCP - General 05/29/25 documented as of this encounter
--- OUTSIDE RECORDS SUMMARY | 2025-06-17 12:20 | XMS_ITS | Encounter Summary ---
Author Organization [facility] Address [address] [place] [address] Care Team Providers Care Explosive Ordnance Handler Name Role Phone Maegan Benjamin APRN Primary Care Provider +1- [phone] Reason for Visit * Reason Comments Follow-up Follow-up Encounter Details Date Type Department Care Team (Late st Contact Info) Description 06/17/2025 1:20 PM EDT Office Visit [facility] [address] [place] [address] Maldonado Martinez MD [address] [address] Laceration of right forearm, initial encounter (Primary Dx) Social History Tobacco Use Types Packs/Day Years Used Date Smoking Tobacco: Every Day Cigarettes Smokeless Tobacco: Never Alcohol Use Standard Drinks/Week Comments No 0 [...] Sign Reading Time Taken Comments Blood Pressure 133/90 06/17/2025 1:21 PM EDT Pulse 83 06/17/2025 1:21 PM EDT Temperature - - Respiratory Rate - - Oxygen Saturation 95% 06/17/2025 1:21 PM EDT Inhaled Oxygen Concentration - - Weight 63.6 kg (140 lb 3.2 oz) 06/17/2025 1:21 P M EDT Height 170.2 cm (5' 7 ) 06/17/2025 1:21 PM EDT Body Mass Index 21.96 06/17/2025 1:21 PM EDT documented in this encounter Miscellaneous Notes * Progress Notes - Christy Whitman MD - 06/17/2025 1:20 PM EDT Images from the original note were not included. [facility] Department of Surgery Division of Plastic and Reconstructive Surgery Plastic Surgery Clinic Note HISTORY OF PRESENT ILLNESS This is a second opinion consultation with this 44 y.o. year old female seen today at the request of Maegan Harry APRN for evaluation of right hand pain. Lacey Mello is a 44 y.o. RHD female with history of multiple strokes, chronic back pain, and 2 PPD nicotine use presenting for evaluation of right hand pain after a right forearm laceration sustained on 05/30/25 after punching a window while intoxicated. Her laceration was repaired in the ED, but since the incident she has had severe pain in her arm and hand that have prevented her from using the arm at all. She reports shooting, burning pains down her arm on both the volar and dorsal aspects, as well as glass like sharp pains whenever the arm or hand is touched. She is wearing a sling and is guarding her arm very closely. She also says that she has chronic neck pain that is causing pain and weakness going down her arm, and she cannot determine how much of her symptoms are caused by her neck rather than her injury. She is unable to localize any particular areas. PAST MEDICAL HISTORY Updated and documented in EMR, reviewed during this appointment. Past Medical History[1] PAST SURGICAL HISTORY Updated and documented in EMR, reviewed during this appointment Surgical History[2] CURRENT MEDICATIONS Current Medications[3] ALLERGIES Bupropion and Erythromycin SOCIAL HISTORY Social History Socioeconomic History Marital status: Unknown Spouse name: Not on file Number of children: Not on file Years of education: Not on file Highest education level: Not on file Occupational History Not on file Tobacco Use Smoking status: Every Day Types: Cigarettes Smokeless tobacco: Never Vaping Use Vaping status: Some Days Substance and Sexual Activity Alcohol use: No Drug use: Never Comment: Drug use: No drug use Sexual activity: Defer Other Topics Concern Not on file Social History Narrative Merged History Encounter Social Drivers of Health Financial Resource Strain: Not on file Food Insecurity: Not on file Transportation Needs: Not on file Physical Activity: Not on file Stress: Not on file Social Connections: Not on file Intimate Partner Violence: Not on file Housing Stability: Not on file FAMILY HISTORY Family history is as noted on the history intake form which was reviewed and scanned into [employer]. Negative for bleeding disorders, clotting disorders or anesthesia issues. SYSTEMS REVIEW A complete 14 point review of systems was discussed with the patient at this time and was negative except as noted in the HPI. PHYSICAL EXAMINATION Vital Signs: Vitals: 06/17/25 1321 BP: (!) 133/90 BP Location: Left arm Pulse: 83 SpO2: 95% Weight: 63.6 kg (140 lb 3.2 oz) Height: 1.702 m (5' 7 ) Body mass index is 21.96 kg/m??. General: GEN: Healthy appearing, alert, no acute distress SKIN: Normal color, texture; no rashes or lesions HEENT: Normocephalic, no signs of trauma, anicteric, neck with normal ROM PULM: Normal respiratory effort on room air, no audible stridor or wheeze CV: Regular rate and rhythm, palpable radial pulses PSYCH: Pleasant and normal affect NEURO: Alert and oriented x 3. Cranial nerves grossly intact, speech intact LYMPH: No palpable lymphadenopathy EXTREMITY: Focused exam of the right upper extremity reveals intact flexors and extensors. Pain outof proportion to exam. No Wartenburg's sign, Froment's, Tinel's. Laceration well healed, sutures inplace without surrounding erythema. Mild edema throughout. Sensation in nonanatomic pattern. RADIOGRAPHS/DATA None IMPRESSION/PLAN Lacey Mello is a 44 y.o. female with history of multiple strokes, chronic back pain, and 2PPD nicotine use presenting for evaluation of right hand pain after a right forearm laceration sustained on 05/30/25 after punching a window while intoxicated. [place] Kaleigh was repeated today, which demonstrates scattered areas of normal sensation with areas of diminished light touch. Exam reveals paresthesias and neuropathic pain in no particular nerve distribution, as well as symptoms proximal to the laceration, which suggests cervical etiology rather than due to the laceration. In addition, she may still be swollen and have a neuropraxia. We discussed her SW results, which demonstrate some improvement but no discernable pattern compared to her previous test. At this point, we would recommend following up with her spine surgeon to further explore more proximal issues. We also encouraged her to not use her sling, as doing so may be causing her to compress her nerves more in her shoulder and neck. We encouraged her to gradually increase her range of motion and activity in her upper extremity as tolerated. OT was offered. She can return to clinic as needed if there is anything we can assist with. The patient indicates understanding of these instructions and agrees with the plan. Christy Whitman MD Plastic & Reconstructive Surgery [1] Past Medical History: Diagnosis Date Anxiety [...] Date BACK SURGERY N/A Back Surgery from [facility] KIDNEY SURGERY N/A Kidney Surgery from [facility] [3] Current Outpatient Medications: amitriptyline (Elavil) 10 MG tablet, Take 1 tablet by mouth nightly., Disp: , Rfl: citalopram (CeleXA) 10 MG tablet, Take 1 tablet by mouth daily., Disp: , Rfl: ibuprofen 200 MG tablet, Take 4 tablets by mouth every 6 hours as needed for mild pain., Disp: , Rfl: meloxicam (Mobic) 15 MG tablet, Take 1 tablet by mouth daily., Disp: , Rfl: OLANZapine (ZyPREXA) 5 MG tablet, Take 1 tablet by mouth daily., Disp: , Rfl: omeprazole (PriLOSEC) [address] capsule, Take 1 capsule by mouth daily., Disp: , Rfl: ondansetron ODT (Zofran-ODT) 4 MG disintegrating tablet, DISSOLVE ONE TABLET BY MOUTH EVERY 8 HOURSAS NEEDED FOR NAUSEA AND VOMITING, Disp: , Rfl: tiZANidine (Zanaflex) 2 MG tablet, TAKE ONE TABLET BY MOUTH EVERY 8 HOURS NEEDED FOR muscle spasticity, Disp: , Rfl: Cosigned by Maldonado Martinez MD at 06/26/2025 10:02 PM EDT Associated attestation - Maldonado Martinez MD - 06/26/2025 10:02 PM EDT I saw and evaluated the patient with the resident/fellow. I discussed the case with the resident/fellow and agree with the findings and plan as documented. documented in this encounter Plan of Treatment Not on file documented as of this encounter Visit Diagnoses Diagnosis Laceration of right forearm, initial encounter- Primary documented in this encounter Additional Health Concerns Assessment Noted Time A Body Mass Index follow-up plan has been documented for the patient 06/26/2025 10:03 PM EDT documented as of this encounter Care Teams Explosive Ordnance Handler Relationship Specialty Start Date End Date Maegan Benjamin APRN [address] [place] [address] PCP - General 05/29/25 documented as of this encounter
--- OUTSIDE RECORDS SUMMARY | 2025-07-04 14:30 | XMS_ITS | Encounter Summary ---
Author Organization [employer] ([place], [place], [place], [place], [place]) Address [address] [place] [address] Care Team Providers Care Real Estate Assistant Name Role Phone Unavailable Primary Care Provider Unavailabl e Reason for Visit * Reason Comments Urinary Retention Pt was referred by P CP * Consultation (Routine) - Closed Specialty Diagnoses / Procedures Referred By Savannah t Referred To Contact Urology Diagnoses Retention of urine Maegan Benjamin APRN [address] [address] Phone: tel: fax: [facility] U[facility] - [address] [facility] [address] [place] [address] Phone: tel: fax: Referral ID Status Reason Start Date Expiration Date V isits Requested Visits Authorized [id number] Closed Specialty Services Required 06/06/2025 06/06/2026 1 1 Encounter Details Date Type Department Care Team (Late st Contact Info) Description 07/04/2025 3:30 PM EDT Office Visit [facility] - [address] [facility] [address] [place] [address] [place] [address] [place] [address] [address] [place] [address] Retention of urine (Primary Dx) Social History Tobacco Use Types Packs/Day Years Used Date Smoking Tobacco: Every Day Cigarettes Smokeless Tobacco: Never Tobacco Cessation:Ready to Q uit: Not Asked; Counseling Given: Not Answered Alcohol Use Standard Drinks/Week Comments Not Currently 0 (1 standard drink = 0.6 oz pur e alcohol) Comments Unknown Sex and Gender Information Value Date Recorded Sex Assigned at Not on file Legal Sex Female 6:51 PM CDT Gender Identity Not on file Sexual Orientation Not on file documented as of this encounter Last Filed Vital Signs Vital Sign Reading Time Taken Comments Blood Pressure 121/79 07/04/2025 3:18 PM EDT Pulse 61 07/04/2025 3:18 PM EDT Temperature 36.4 C (97.5 F) 07/04/2025 3:18 PM EDT Respiratory Rate - - Oxygen Saturation 94% 07/04/2025 3:18 PM EDT Inhaled Oxygen Concentration - - Weight - - Height - - Body Mass Index - - documented in this encounter Progress Notes * Marciano Chandler MD - 07/04/2025 3:30 PM EDT Subjective: Patient ID: Lacey Mello is a 44 y.o. female. Chief Complaint: Urinary Retention (Pt was referred by PCP ) HPI 44-year-old female who is having voiding difficulties for the last several months. She has a very difficult time emptying her bladder. She voids small amounts of urine at the time. Sometimes she has some dysuria. There is been no hematuria. She experiences urgency and urge incontinence. She hasnocturia 1-3 times at night. She has been worked up for neurological issues as well. Postvoid residual was 35 mL and the urine Review of Systems Constitutional: Negative. HENT: Negative. Respiratory: Negative. Cardiovascular: Negative. Gastrointestinal: Negative. Genitourinary: Positive for difficulty urinating and urgency. There are no active problems to display for this patient. Past Medical History: Diagnosis Date History of multiple strokes Past Surgical Hx: she Past Surgical History: Procedure Laterality Date ANTERIOR FUSION CERVICAL SPINE Social Hx:she reports that she has been smoking cigarettes. She has never used smokeless tobacco. She reports that she does not currently use alcohol. Social History Social History Narrative Not on file Family Hx: her family history is not on file. Allergies Allergen Reactions Bupropion Other (See Comments) Current Outpatient Medications on File Prior to Visit Medication Sig Dispense Refill amitriptyline (ELAVIL) 10 MG tablet Take 1 tablet (10 mg total) by mouth nightly. cefadroxil (DURICEF) 500 MG capsule Take 1 capsule (500 mg total) by mouth 2 (two) times daily. citalopram (CeleXA) 10 MG tablet Take 1 tablet (10 mg total) by mouth daily. diclofenac sodium 1 % gel Apply 2 g topically 4 (four) times daily. fluconazole (DIFLUCAN) 100 MG tablet Take 1 tablet (100 mg total) by mouth daily. ibuprofen (MOTRIN) 800 MG tablet Take 1 tablet (800 mg total) by mouth every 8 (eight) hours as needed. lidocaine-prilocaine (EMLA) 2.5-2.5 % cream Apply topically as needed. meloxicam (MOBIC) 15 MG tablet Take 1 tablet (15 mg total) by mouth daily. OLANZapine (ZyPREXA) 10 MG tablet Take 0.5 tablets (5 mg total) by mouth 2 (two) times daily. omeprazole (PriLOSEC) 20 MG capsule Take 1 capsule (20 mg total) by mouth daily. ondansetron (ZOFRAN-ODT) 4 MG disintegrating tablet 1 tablet (4 mg total) every 8 (eight) hours as needed. No current facility-administered medications on file prior to visit. No results found for: PSA , NA , K , CL , CO2 , GLUCOSE , CALCIUM , EGFR , TEBG , WBC , RBC , HGB , HCT , MCV , MCH , MCHC , RDW , PLT , MPV No results found for: COLORU , CLARITYU , SPECGRAV , PHUR , PROTEINUA , GLUCOSEU , KETONESU , BLOODU , NITRITE , UROBILINOGEN , RBCUA , WBCUA , BACTERIA , MUCUS , SQUAMEPIT , HYALINECASTS , URCASTS , GRANULARCAST , URCRYSTALS , TRICHOMONAS Objective: Vitals: BP 121/79 Pulse 61 Temp 97.5 ??F (36.4 ??C) SpO2 94% Physical Exam Constitutional: Appearance: Normal appearance. Pulmonary: Effort: Pulmonary effort is normal. Abdominal: General: Abdomen is flat. Palpations: Abdomen is soft. Neurological: Mental Status: She is alert. Assessment: Urge incontinence Lacey was seen today for urinary retention. Diagnoses and all orders for this visit: Retention of urine - Ambulatory referral to Urology - Bladder Scan - clinic performed Plan: Julissa There are no Patient Instructions on file for this visit. There is no immunization history on file for this patient. Outpatient Encounter Medications as of 07/04/2025 Medication Sig Dispense Refill amitriptyline (ELAVIL) 10 MG tablet Take 1 tablet (10 mg total) by mouth nightly. cefadroxil (DURICEF) 500 MG capsule Take 1 capsule (500 mg total) by mouth 2 (two) times daily. citalopram (CeleXA) 10 MG tablet Take 1 tablet (10 mg total) by mouth daily. diclofenac sodium 1 % gel Apply 2 g topically 4 (four) times daily. fluconazole (DIFLUCAN) 100 MG tablet Take 1 tablet (100 mg total) by mouth daily. ibuprofen (MOTRIN) 800 MG tablet Take 1 tablet (800 mg total) by mouth every 8 (eight) hours as needed. lidocaine-prilocaine (EMLA) 2.5-2.5 % cream Apply topically as needed. meloxicam (MOBIC) 15 MG tablet Take 1 tablet (15 mg total) by mouth daily. OLANZapine (ZyPREXA) 10 MG tablet Take 0.5 tablets (5 mg total) by mouth 2 (two) times daily. omeprazole (PriLOSEC) 20 MG capsule Take 1 capsule (20 mg total) by mouth daily. ondansetron (ZOFRAN-ODT) 4 MG disintegrating tablet 1 tablet (4 mg total) every 8 (eight) hours as needed. No facility-administered encounter medications on file as of 07/04/2025. No follow-ups on file. I have reviewed the following as needed: Marciano Chandler MD 07/04/2025 documented in this encounter Plan of Treatment Upcoming Encounters Date Type Department Care Team (Late st Contact Info) Description 08/06/2025 10:00 AM EST Office Visit [facility] - [address] [place] [address] Marciano Chandler MD [address] [facility] [address] [place] [address] documented as of this encounter Procedures Procedure Name Priority Date/Time Associated Diagnosis Comments BLADDER SCAN - CLINIC PERFORMED Routine 07/04/2025 3:38 PM EDT Retention of urine documented in this encounter Results * Bladder Scan - clinic performed (07/04/2025 3:38 PM EDT) Volume: 35ml us Marciano Chandler MD UROLOGY ORDERABLES Final Result documented in this encounter Visit Diagnoses Diagnosis Retention of urine- Primary Unspecified retention of urine documented in this encounter
--- OUTSIDE RECORDS SUMMARY | 2025-07-07 11:21 | XMS_ITS | Encounter Summary ---
Author Organization [facility] Address [address] [place] [address] Care Team Providers Care Production Superintendent Name Role Phone Provider, No Known Primary Care Provider Unavail able Reason for Referral * Diagnostic Imaging (Routine) - Closed Specialty Diagnoses / Procedures Referred By Contac t Referred To Contact Procedures XR Outside Extremity Films, Radiant Outside Referral ID Status Reason Start Date Expiration Date Visits Re quested Visits Authorized [id number] Closed 07/07/2025 10/06/2026 1 1 * MRI/CAT/PET Scan (Routine) - Pending Review Specialty Diagnoses / Procedures Referred By Contac t Referred To Contact Procedures MRI Outside Head Films, Radiant Outside Referral ID Status Reason Start Date Expiration Date V isits Requested Visits Authorized [id number] Pending Review 07/07/2025 10/06/2026 1 1 * MRI/CAT/PET Scan (Routine) - Pending Review Specialty Diagnoses / Procedures Referred By Contac t Referred To Contact Procedures MRI Outside Head Films, Radiant Outside Referral ID Status Reason Start Date Expiration Date V isits Requested Visits Authorized [id number] Pending Review 07/07/2025 10/06/2026 1 1 Reason for Visit * Reason Comments Headache Encounter Details Date Type Department Care Team (Late st Contact Info) Description 07/07/2025 12:21 PM EDT - 07/07/2025 6:08 PM EDT Emergency [facility] [address] [place] [id number] Candido Glynn, [address] [facility] [place] [address] Nonintractable episodic headache, unspecified headache type (Primary Dx); Paresthesias; Lightheadedness; Abnormal brain MRI; Elevated liver enzymes Discharge Disposition: Home or Self Care Social History Tobacco Use Types Packs/Day Years Used Date Smoking Tobacco: Never Assessed Abuse Screen Answer Date Recorded Feels Unsafe at Home or Work/School no 07/07/2025 Feels Threatened by Someone no 03/2025 Does Anyone Try to Keep You From Having Contact with Others or Doing Things Outside Your Home? no 07/07/2025 Physical Signs of Abuse Present no 07/07/2025 Comments No Sex and Gender Information Value Date Recorded Sex Assigned at Not on file Legal Sex Female 12:17 PM EDT Gender Identity Not on file Sexual Orientation Not on file documented as of this encounter Last Filed Vital Signs Vital Sign Reading Time Taken Comments Blood Pressure 141/78 07/07/2025 6:00 PM EDT Pulse 58 07/07/2025 6:00 PM EDT Temperature 37.1 C (98.7 F) 07/07/2025 12:17 PM EDT Respiratory Rate 16 07/07/2025 12:17 PM EDT Oxygen Saturation 97% 07/07/2025 6:00 PM EDT Inhaled Oxygen Concentration - - Weight 65.3 kg (144 lb) 07/07/2025 12:17 PM EDT Height 170.2 cm (5' 7 ) 07/07/2025 12:17 PM EDT Body Mass Index 22.55 07/07/2025 12:17 PM EDT documented in this encounter Functional Status * Calculated C-SSRS Risk Score (Lifetime/Recent) Answer Date of Assessment Author No Risk Indicated 07/07/2025 6:06 PM EDT Lacey Prescott RN * [place] Suicide Severity Rating Scale (Screener/Recent Self-Report) Question Answer Date of Assessment Author 1. Wish to be (Past 1 Month) No 025 6:06 PM EDT Lacey Prescott RN 2. Non-Specific Active Suici suzy Thoughts (Past 1 Month) No 07/07/2025 6:06 PM EDT Lacey Prescott RN 6. Suicidal Behavior (Lifetime) No 6:06 PM EDT Lacey Prescott RN documented as of this encounter Discharge Instructions * Discharge Instructions* Candido Glynn DO - 07/07/2025 5:09 PM EDT Liver enzymes are elevated which shows liver inflammation. Discontinue Tylenol use. Follow-up with your primary care provider regarding both this and your presenting complaints. MRI findings are nonspecific as we discussed. Follow-up with neurology at next availability. Have a low threshold to return to the emergency department if symptoms persist, worsen, or other concerns arise. * Attachments The following attachments cannot be sent through Care Everywhere. * General Headache Without Cause [id number] (Armenian) * Paresthesia [id number] (Armenian) * Dizziness (Armenian) documented in this encounter ED Notes * Candido Glynn DO - 07/07/2025 12:41 PM EDT Subjective History of Present Illness Patient is a pleasant 44-year-old female presents to the emergency department with multiple complaints. She states that she has had headaches, back pain, neck pain, abdominal pain, dysuria, poor control of her urination and multiple falls and dizziness and lightheadedness. She states that many of the symptoms been going on for many years but over the past couple months her headaches have been more pronounced. She has been seeing her primary care provider and is also seeing a urologist. She has had numerous studies including MRIs of the brain and spine. The MRI of the brain noted some nonspecific lesions, neoplasm not excluded, inflammatory, infectious etiology is not excluded. Given the wide differential and the persistent headache and other vague symptoms including her vague neurologic complaints with the falls in the urinary symptoms she was referred to the emergency department for repeat MRI of the brain to further assess these nonspecific findings on the original scan she had over1 month ago. Denies fever. Denies chest pain, breathing difficulty, or other acute complaints. Review of Systems All other systems reviewed and are negative. No past medical history on file. Allergies Allergen Reactions Wellbutrin [Bupropion] Anaphylaxis No past surgical history on file. No family history on file. Social History Socioeconomic History Marital status: Single Objective Physical Exam Vitals and nursing note reviewed. Constitutional: General: She is not in acute distress. Appearance: She is ill-appearing (Appears uncomfortable, consistent with headache complaint, but nosignificant distress). HENT: Head: Normocephalic and atraumatic. Eyes: Conjunctiva/sclera: Conjunctivae normal. Pupils: Pupils are equal, round, and reactive to light. Neck: Thyroid: No thyromegaly. Cardiovascular: Rate and Rhythm: Normal rate and regular rhythm. Heart sounds: Normal heart sounds. No murmur heard. No friction rub. No gallop. Pulmonary: Effort: Pulmonary effort is normal. No respiratory distress. Breath sounds: Normal breath sounds. Abdominal: General: Bowel sounds are normal. Palpations: Abdomen is soft. Tenderness: There is no abdominal tenderness. Musculoskeletal: General: Normal range of motion. Cervical back: Normal range of motion and neck supple. Lymphadenopathy: Cervical: No cervical adenopathy. Skin: General: Skin is warm and dry. Neurological: General: No focal deficit present. Mental Status: She is alert and oriented to person, place, and time. Comments: Generally weak. When she raises her arms off the bed she states that she has pain in her upper back and is grimacing. Sensitive to light touch bilaterally but states that the right upper extremity may be slightly diminished relative to the left. Psychiatric: Behavior: Behavior normal. Thought Content: Thought content normal. Procedures ED Course ED Course as of 07/08/25 1449 Mon Jul 07, 2025 1637 Platelets: 331 [CP] 1706 Liver enzymes elevated. Discussed this finding with the patient and significant other. Patientstates that she will often take 3 or 4 Tylenol's at a time 2 or 3 times per day which would be overthe 1 g maximum per dose and over the 4 g max per day. She has been doing this for the extended past. Emphasize the importance of stopping Tylenol use and following up with her primary care provider regarding her acute liver inflammation, which I suspect is related to this Tylenol use. Denies any acute increased ingestion. Laboratory workup is otherwise reassuring. Patient is afebrile. No meningeal signs on examination. MRI with and without contrast unfortunately is vague in regards to the inter pretation but reassuringly is stable compared to MRI performed 6 weeks ago. Case discussed with , neurology. Agrees that the MRI stability is reassuring and patient can be discharged to follow-up with neurology as previously scheduled. Patient states that she has been referred to neurology already and has appointment with a neurologist in her hometown here in several weeks. Both are comfortable with discharge at this time. Understand have a low threshold to return to the emergency department if symptoms worsen or other concerns arise. [CP] ED Course User Index [CP] Candido Glynn, DO Recent Results (from the past 24 hours) Comprehensive Metabolic Panel Collection Time: 07/07/25 3:08 PM Specimen: Blood Result Value Ref Range Glucose 85 65 - 99 mg/dL BUN 6.0 6.0 - 20.0 mg/dL Creatinine 0.68 0.57 - 1.00 mg/dL Sodium 141 136 - 145 mmol/L Potassium 3.8 3.5 - 5.2 mmol/L Chloride 107 98 - 107 mmol/L CO2 22.4 22.0 - 29.0 mmol/L Calcium 8.7 8.6 - 10.5 mg/dL Total Protein 6.2 6.0 - 8.5 g/dL Albumin 4.0 3.5 - 5.2 g/dL ALT (SGPT) 478 (H) 1 - 33 U/L AST (SGOT) 159 (H) 1 - 32 U/L Alkaline Phosphatase 72 39 - 117 U/L Total Bilirubin 0.4 0.0 - 1.2 mg/dL Globulin 2.2 gm/dL A/G Ratio 1.8 g/dL BUN/Creatinine Ratio 8.8 7.0 - 25.0 Anion Gap 11.6 5.0 - 15.0 mmol/L eGFR 111.0 >60.0 mL/min/1.73 Green Top (Gel) Collection Time: 07/07/25 3:08 PM Result Value Ref Range Extra Tube Hold for add-ons. Lavender Top Collection Time: 07/07/25 3:08 PM Result Value Ref Range Extra Tube hold for add-on Gold Top - SST Collection Time: 07/07/25 3:08 PM Result Value Ref Range Extra Tube Hold for add-ons. Lawrence Top Collection Time: 07/07/25 3:08 PM Result Value Ref Range Extra Tube Hold for add-ons. Light Blue Top Collection Time: 07/07/25 3:08 PM Result Value Ref Range Extra Tube Hold for add-ons. CBC Auto Differential Collection Time: 07/07/25 3:08 PM Specimen: Blood Result Value Ref Range WBC 11.26 (H) 3.40 - 10.80 10*3/mm3 RBC 3.64 (L) 3.77 - 5.28 10*6/mm3 Hemoglobin 12.5 12.0 - 15.9 g/dL Hematocrit 37.8 34.0 - 46.6 % MCV 103.8 (H) 79.0 - 97.0 fL MCH 34.3 (H) 26.6 - 33.0 pg MCHC 33.1 31.5 - 35.7 g/dL RDW 13.4 12.3 - 15.4 % RDW-SD 52.0 37.0 - 54.0 fl MPV 9.2 6.0 - 12.0 fL Platelets 331 140 - 450 10*3/mm3 Neutrophil % 65.1 42.7 - 76.0 % Lymphocyte % 26.7 19.6 - 45.3 % Monocyte % 6.1 5.0 - 12.0 % Eosinophil % 1.3 0.3 - 6.2 % Basophil % 0.4 0.0 - 1.5 % Immature Grans % 0.4 0.0 - 0.5 % Neutrophils, Absolute 7.32 (H) 1.70 - 7.00 10*3/mm3 Lymphocytes, Absolute 3.01 0.70 - 3.10 10*3/mm3 Monocytes, Absolute 0.69 0.10 - 0.90 10*3/mm3 Eosinophils, Absolute 0.15 0.00 - 0.40 10*3/mm3 Basophils, Absolute 0.04 0.00 - 0.20 10*3/mm3 Immature Grans, Absolute 0.05 0.00 - 0.05 10*3/mm3 nRBC 0.0 0.0 - 0.2 /100 WBC Acetaminophen Level Collection Time: 07/07/25 3:08 PM Specimen: Blood Result Value Ref Range Acetaminophen <5.0 0.0 - 30.0 mcg/mL Note: In addition to lab results from this visit, the labs listed above may include labs taken at another facility or during a different encounter within the last 24 hours. Please correlate lab timeswith ED admission and discharge times for further clarification of the services performed during this visit. XR Chest 1 View Final Result Impression: No radiographic evidence of acute cardiopulmonary abnormality. Electronically Signed: Riley Grey MD 07/07/2025 1:46 PM EDT Workstation ID: [id number] MRI Brain With & Without Contrast Final Result 1.Vague T2/FLAIR signal hyperintensity within the michael and left greater than right lentiform nuclei. Several additional tiny foci of T2/FLAIR signal hyperintensity within the bilateral hemispheric white matter. Findings are somewhat nonspecific and may be related to demyelinating process, chronic microvascular ischemic change, postinfectious/postinflammatory states, or underlying vasculitis. White matter changes have not significantly changed since05/28/2025. 2.No diffusion restriction is identified to suggest acute infarct. 3.No abnormal contrast enhancement is identified. Electronically Signed: Gagandeep Roca MD 07/07/2025 2:06 PM EDT Workstation ID: [id number] MRI Outside Head Final Result MRI Outside Head Final Result XR Outside Extremity Final Result Vitals: 07/07/25 1630 07/07/25 1700 07/07/25 1730 07/07/25 1800 BP: 142/95 137/84 131/83 141/78 Pulse: 68 67 61 58 Resp: Temp: SpO2: 98% 97% 95% 97% Weight: Height: Medications sodium chloride 0.9 % bolus 1,000 mL (0 mL Intravenous Stopped 07/07/25 1539) diphenhydrAMINE (BENADRYL) injection 25 mg (25 mg Intravenous Given 07/07/25 1512) ketorolac (TORADOL) injection 15 mg (15 mg Intravenous Given 07/07/25 1516) metoclopramide (REGLAN) injection 10 mg (10 mg Intravenous Given 07/07/25 1511) Gadopiclenol (VUEWAY) injection 7 mL (7 mL Intravenous Given 07/07/25 1318) midazolam (VERSED) injection 1 mg (1 mg Intravenous Given 07/07/25 1511) ketorolac (TORADOL) injection 15 mg (15 mg Intravenous Given 07/07/25 1805) diphenhydrAMINE (BENADRYL) injection 25 mg (25 mg Intravenous Given 07/07/25 1805) prochlorperazine (COMPAZINE) injection 5 mg (5 mg Intravenous Given 10/6/25 1806) ECG/EMG Results (last 24 hours) Procedure Component Value Units Date/Time ECG 12 Lead Other; Fatigue [[id number]] Collected: 07/07/25 1351 Updated: 07/07/25 1403 QT Interval 438 ms QTC Interval 429 ms Narrative: Test Reason : Other~ Blood Pressure : */* mmHG Vent. Rate : 58 BPM Atrial Rate : 58 BPM P-R Int : 156 ms QRS Dur : 84 ms QT Int : 438 ms P-R-T Axes : 69 16 42 degrees QTcB Int : 429 ms Sinus bradycardia Otherwise normal ECG No previous ECGs available Referred By: EDMD Confirmed By: ECG 12 Lead Other; Fatigue Preliminary Result Test Reason : Other~ Blood Pressure : */* mmHG Vent. Rate : 58 BPM Atrial Rate : 58 BPM P-R Int : 156 ms QRS Dur : 84 ms QT Int : 438 ms P-R-T Axes : 69 16 42 degrees QTcB Int : 429 ms Sinus bradycardia Otherwise normal ECG No previous ECGs available Referred By: EDMD Confirmed By: Medical Decision Making Problems Addressed: Abnormal brain MRI: complicated acute illness or injury Elevated liver enzymes: complicated acute illness or injury Lightheadedness: complicated acute illness or injury Nonintractable episodic headache, unspecified headache type: complicated acute illness or injury Paresthesias: complicated acute illness or injury Amount and/or Complexity of Data Reviewed External Data Reviewed: notes. Labs: ordered. Decision-making details documented in ED Course. Radiology: ordered and independent interpretation performed. Decision-making details documented in ED Course. ECG/medicine tests: ordered and independent interpretation performed. Decision- making details documented in ED Course. Risk Prescription drug management. Final diagnoses: Nonintractable episodic headache, unspecified headache type Paresthesias Lightheadedness Abnormal brain MRI Elevated liver enzymes ED Disposition ED Disposition ED Disposition Discharge Condition Stable Comment -- DISCHARGE Patient discharged in stable condition. Reviewed implications of results, diagnosis, meds, responsibility to follow up, warning signs and symptoms of possible worsening, potential complications and reasons to return to ER. Patient/Family voiced understanding of above instructions. Discussed plan for discharge, as there is no emergent indication for admission. Pt/family is agreeable and understands need for follow up and possible repeat testing. Pt/family is aware that discharge does not mean that nothing is wrong but that it indicates no emergency is currently present that requires admission and they must continue care with follow-up as given below or with a physician of their choice. FOLLOW-UP Your neurologist [facility] [address] [facility] [phone] If symptoms worsen Your primary care provider Schedule an appointment as soon as possible for a visit Medication List No changes were made to your prescriptions during this visit. Candido Glynn DO 07/08/25 1449 documented in this encounter Plan of Treatment Not on file documented as of this encounter Procedures Procedure Name Priority Date/Time Associated Diagnosis Comments LAWRENCE TOP STAT 07/07/2025 3:08 PM EDT GOLD TOP - SST STAT 07/07/2025 3:08 PM EDT DK GREEN TOP STAT 07/07/2025 3:08 PM EDT CBC WITH AUTO DIFFERENTIAL STAT 07/07/2025 3:08 PM EDT LAVENDER TOP STAT 07/07/2025 3:08 PM EDT LIGHT BLUE TOP STAT 07/07/2025 3:08 PM EDT RAINBOW DRAW STAT 07/07/2025 3:08 PM EDT CBC AND DIFFERENTIAL STAT 07/07/2025 3:08 PM EDT ACETAMINOPHEN LEVEL STAT 07/07/2025 3 :08 PM EDT COMPREHENSIVE METABOLIC PANEL STAT 07/07/2025 3:08 PM EDT URINALYSIS W/ MICROSCOPIC IF INDICATED (NO CULTURE) STAT 07/07/2025 2:28 PM EDT , URINE STAT 07/07/2025 2:28 PM EDT ECG 12-LEAD STAT 07/07/2025 1:51 PM EDT XR CHEST 1 VW STAT 07/07/2025 1:43 PM EDT MRI BRAIN W WO CONTRAST STAT 07/07/2025 1:18 PM EDT MRI OUTSIDE BRAIN Routine 05/28/2025 12: 00 AM EDT MRI OUTSIDE BRAIN Routine 05/15/2025 12: 00 AM EDT XR OUTSIDE EXTREMITY Routine 05/05/2025 12:00 AM EDT documented in this encounter Results * Acetaminophen Level (07/07/2025 3:08 PM EDT) [facility] Acetaminophen <5.0 0.0 - 30.0 mcg/mL 07/07/2025 4:51 PM EDT [facility] Blood Line / Unknown 07/07/2025 3: 08 PM EDT 07/07/2025 3:26 PM EDT us Candido Glynn DO LAB BLOOD ORDERABLES Final Resul t [facility]
[address] [place] [address], * (ABNORMAL) CBC Auto Differential (07/07/2025 3:08 PM EDT) [facility] WBC 11.26(H) 3.40 - 10.80 10*3/mm3 07/07/2025 3:29 PM EDT [facility] RBC 3.64(L) 3.77 - 5.28 10*6/mm3 07/07/2025 3:29 PM EDT [facility] Hemoglobin 12.5 12.0 - 15.9 g/dL 07/07/2025 3:29 PM EDT [facility] Hematocrit 37.8 34.0 - 46.6 % 07/07/2025 3:29 PM EDT [facility] MCV 103.8(H) 79.0 - 97.0 fL 07/07/2025 3:29 PM EDT [facility] MCH 34.3(H) 26.6 - 33.0 pg 07/07/2025 3:29 PM EDT [facility] MCHC 33.1 31.5 - 35.7 g/dL 07/07/2025 3:29 PM EDT [facility] RDW 13.4 12.3 - 15.4 % 07/07/2025 3:29 PM EDT [facility] RDW-SD 52.0 37.0 - 54.0 fl 07/07/2025 3:29 PM EDT [facility] MPV 9.2 6.0 - 12.0 fL 07/07/2025 3:29 PM EDT [facility] Platelets 331 140 - 450 10*3/mm3 07/07/2025 3:29 PM EDT [facility] Neutrophil % 65.1 42.7 - 76.0 % 07/07/2025 3:29 PM EDT [facility] Lymphocyte % 26.7 19.6 - 45.3 % 07/07/2025 3:29 PM EDT [facility] Monocyte % 6.1 5.0 - 12.0 % 07/07/2025 3:29 PM EDT [facility] Eosinophil % 1.3 0.3 - 6.2 % 07/07/2025 3:29 PM EDT [facility] Basophil % 0.4 0.0 - 1.5 % 07/07/2025 3:29 PM EDT [facility] Immature Grans % 0.4 0.0 - 0.5 % 07/07/2025 3:29 PM EDT [facility] Neutrophils, Absolute 7.32(H) 1.70 - 7.00 10*3/mm3 07/07/2025 3:29 PM EDT [facility] Lymphocytes, Absolute 3.01 0.70 - 3.10 10*3/mm3 07/07/2025 3:29 PM EDT [facility] Monocytes, Absolute 0.69 0.10 - 0.90 10*3/mm3 07/07/2025 3:29 PM EDT [facility] Eosinophils, Absolute 0.15 0.00 - 0.40 10*3/mm3 07/07/2025 3:29 PM EDT [facility] Basophils, Absolute 0.04 0.00 - 0.20 10*3/mm3 07/07/2025 3:29 PM EDT [facility] Immature Grans, Absolute 0.05 0.00 - 0.05 10*3/mm3 07/07/2025 3:29 PM EDT [facility] nRBC 0.0 0.0 - 0.2 /100 WBC 07/07/2025 3:29 PM EDT [facility] Blood Line / Unknown 07/07/2025 3: 08 PM EDT 07/07/2025 3:26 PM EDT [employer] LAB BLOOD ORDERABLES Final Resul t Performing Organization Address City/[facility]/ZIP Co de Phone Number [facility]
[address] [place] [address], * Light Blue Top (07/07/2025 3:08 PM EDT) Extra Tube Hold for add-ons. 07/07/2025 3:31 PM EDT [facility] Comment:Auto resulted Blood Line / Unknown 07/07/2025 3: 08 PM EDT 07/07/2025 3:26 PM EDT [employer] LAB BLOOD ORDER ONLY Final Resul t Performing Organization Address City/[facility]/ZIP Co de Phone Number [facility]
[address] [place] [address], * Lawrence Top (07/07/2025 3:08 PM EDT) Extra Tube Hold for add-ons. 07/07/2025 3:31 PM EDT [facility] Comment:Auto resulted. Blood Line / Unknown 07/07/2025 3: 08 PM EDT 07/07/2025 3:26 PM EDT us Candido Asherville DO LAB BLOOD ORDER ONLY Final Resul t Performing Organization Address City/[facility]/ZIP Co de Phone Number [facility]
[address] [place] [address], [place] [phone] * Gold Top - SST (07/07/2025 3:08 PM EDT) Extra Tube Hold for add-ons. 07/07/2025 3:31 PM EDT [facility] Comment:Auto resulted. Blood Line / Unknown 07/07/2025 3: 08 PM EDT 07/07/2025 3:26 PM EDT us Candido [place]her[place] DO LAB BLOOD ORDER ONLY Final Resul t Performing Organization Address [facility] Co de Phone Number [facility]
[address] [place] [address], [place] [phone] * Lavender Top (07/07/2025 3:08 PM EDT) Extra Tube hold for add-on 07/07/2025 3:31 PM EDT [facility] Comment:Auto resulted Blood Line / Unknown 07/07/2025 3: 08 PM EDT 07/07/2025 3:26 PM EDT us Candido [place] DO LAB BLOOD ORDER ONLY Final Resul t Performing Organization Address City/[facility] Co de Phone Number [facility]
[address] [place] [address], [place] [phone] * Green Top (Gel) (07/07/2025 3:08 PM EDT) Pathologist [facility] Extra Tube Hold for add-ons. 07/07/2025 3:31 PM EDT [facility] Comment:Auto resulted. Blood Line / Unknown 07/07/2025 3: 08 PM EDT 07/07/2025 3:26 PM EDT us Candidojose daniel Glynn DO LAB BLOOD ORDER ONLY Final Resul t [facility]
[address] [place] [address], * (ABNORMAL) Comprehensive Metabolic Panel (07/07/2025 3:08 PM EDT) [facility] Glucose 85 65 - 99 mg/dL 07/07/2025 3:50 PM EDT [facility] BUN 6.0 6.0 - 20.0 mg/dL 07/07/2025 3:50 PM EDT [facility] Creatinine 0.68 0.57 - 1.00 mg/dL 07/07/2025 3:50 PM EDT [facility] Sodium 141 136 - 145 mmol/L 07/07/2025 3:50 PM EDT [facility] Potassium 3.8 3.5 - 5.2 mmol/L 07/07/2025 3:50 PM EDT [facility] Chloride 107 98 - 107 mmol/L 07/07/2025 3:50 PM EDT [facility] CO2 22.4 22.0 - 29.0 mmol/L 07/07/2025 3:50 PM EDT [facility] Calcium 8.7 8.6 - 10.5 mg/dL 07/07/2025 3:50 PM EDT [facility] Total Protein 6.2 6.0 - 8.5 g/dL 07/07/2025 3:50 PM EDT [facility] Albumin 4.0 3.5 - 5.2 g/dL 07/07/2025 3:50 PM EDT [facility] ALT (SGPT) 478(H) 1 - 33 U/L 07/07/2025 3:50 PM EDT [facility] AST (SGOT) 159(H) 1 - 32 U/L 07/07/2025 3:50 PM EDT [facility] Alkaline Phosphatase 72 39 - 117 U/L 07/07/2025 3:50 PM EDT [facility] Total Bilirubin 0.4 0.0 - 1.2 mg/dL 07/07/2025 3:50 PM EDT [facility] Globulin 2.2 gm/dL 07/07/2025 3:50 PM EDT [facility] Comment:Calculated Result A/G Ratio 1.8 g/dL 07/07/2025 3:50 PM EDT [facility] BUN/Creatinine Ratio 8.8 7.0 - 25.0 07/07/2025 3:50 PM EDT [facility] Anion Gap 11.6 5.0 - 15.0 mmol/L 07/07/2025 3:50 PM EDT [facility] eGFR 111.0 >60.0 mL/min/1.7 3 07/07/2025 3:50 PM EDT [facility] Blood Line / Unknown 07/07/2025 3: 08 PM EDT 07/07/2025 3:26 PM EDT [facility] - 07/07/2025 3:50 PM EDT GFR Categories in Chronic Kidney Disease (CKD) GFR Category GFR (mL/min/1.73) Interpretation G1 90 or greater Normal or high (1) G2 60-89 Mild decrease (1) G3a 45-59 Mild to moderate decrease G3b 30-44 Moderate to severe decrease G4 15-29 Severe decrease G5 14 or less Kidney failure (1)In the absence of evidence of kidney disease, neither GFR category G1 or G2 fulfill the criteria for CKD. eGFR calculation 2020 CKD-EPI creatinine equation, which does not include race as a factor us Candido Glynn DO LAB BLOOD ORDERABLES Final Resul t [facility]
[address] [place] [address], [place] [phone] * Urinalysis With Microscopic If Indicated (No Culture) - Urine, Clean Catch (07/07/2025 2:28 PM EDT) Color, UA Yellow Yellow, Straw 07/07/2025 3:06 PM EDT [facility] Appearance, UA Clear Clear 07/07/2025 3:06 PM EDT [facility] pH, UA 7.0 5.0 - 8.0 07/07/2025 3:06 PM EDT [facility] Specific [place], UA 1.010 1.005 - 1.030 07/07/2025 3:06 PM EDT [facility] Glucose, UA Negative Negative 07/07/2025 3:06 PM EDT [facility] Ketones, UA Negative Negative 07/07/2025 3:06 PM EDT [facility] Bilirubin, UA Negative Negative 07/07/2025 3:06 PM EDT [facility] Blood, UA Negative Negative 07/07/2025 3:06 PM EDT [facility] Protein, UA Negative Negative 07/07/2025 3:06 PM EDT [facility] Leuk Esterase, UA Negative Negative 07/07/2025 3:06 PM EDT [facility] Nitrite, UA Negative Negative 07/07/2025 3:06 PM EDT [facility] Urobilinogen, UA 0.2 E.U./dL 0.2 - 1.0 E.U./dL 07/07/2025 3:06 PM EDT [facility] Urine Urine specimen obtained by clean catch procedure / Unknown Collection / Unknown 07/07/2025 2:28 PM EDT 07/07/2025 2:58 PM EDT Narrative [facility] - 07/07/2025 3:06 PM EDT Urine microscopic not indicated. us Candido Glynn DO URINE ORDERABLES Final Result Performing Organization Address [facility] Co de Phone Number [facility]
[address] [place] [address], * , Urine - Urine, Clean Catch (07/07/2025 2:28 PM EDT) HCG, Urine QL Negative Negative DISK DIFFUSION 07/07/2025 3:06 PM EDT [facility] Urine Urine specimen obtained by clean catch procedure / Unknown Collection / Unknown 07/07/2025 2:28 PM EDT 07/07/2025 2:58 PM EDT us Candido Glynn DO URINE ORDERABLES Final Result Performing Organization Address [facility] de Phone Number [facility]
[address] [place] [address], * ECG 12 Lead Other; Fatigue (07/07/2025 1:51 PM EDT) QT Interval 438 ms BH ECG QTC Interval 429 ms ECG 07/07/2025 1:51 PM EDT 07/17/2025 12:25 PM EDT Narrative ECG - 07/17/2025 12:25 PM EDT Test Reason : Other~ Blood Pressure : */* mmHG Vent. Rate : 58 BPM Atrial Rate : 58 BPM P-R Int : 156 ms QRS Dur : 84 ms QT Int : 438 ms P-R-T Axes : 69 16 42 degrees QTcB Int : 429 ms Sinus bradycardia Otherwise normal ECG No previous ECGs available Confirmed by MD CARLY, CANDIDO ([id number]) on 07/17/2025 12:25:52 PM Referred By: EDMD Confirmed By: CANDIDO GLYNN MD Procedure Note Candido Glynn DO - 07/17/2025 Test Reason : Other~ Blood Pressure : */* mmHG Vent. Rate : 58 BPM Atrial Rate : 58 BPM P-R Int : 156 ms QRS Dur : 84 ms QT Int : 438 ms P-R-T Axes : 69 16 42 degrees QTcB Int : 429 ms Sinus bradycardia Otherwise normal ECG No previous ECGs available Confirmed by MD GLYNN CORY ([id number]) on 07/17/2025 12:25:52 PM Referred By: EDMD Confirmed By: CANDIDO GLYNN MD us Candido Glynn DO ECG ORDERABLES Final Result [facility] ECG * XR Chest 1 View (07/07/2025 1:43 PM EDT) Anatomical Region Laterality Modality Body N/A Radiographic Claudia ging 07/07/2025 1:45 PM EDT Impressions 07/07/2025 1:46 PM EDT Impression: No radiographic evidence of acute cardiopulmonary abnormality. Electronically Signed: Riley Grey MD 07/07/2025 1:46 PM EDT Workstation ID: [id number] Narrative 07/07/2025 1:46 PM EDT XR CHEST 1 VW Date of Exam: 07/07/2025 1:13 PM EDT Indication: Fatigue. Comparison: None available. Findings: Mediastinum: Cardiac silhouette appears normal in size Lungs: The lungs appear clear without focal consolidation appreciated. Pleura: No pleural effusion or pneumothorax. Bones and soft tissues: No acute, displaced fracture seen. Procedure Note Riley Grey MD - 07/07/2025 XR CHEST 1 VW Date of Exam: 07/07/2025 1:13 PM EDT Indication: Fatigue. Comparison: None available. Findings: Mediastinum: Cardiac silhouette appears normal in size Lungs: The lungs appear clear without focal consolidation appreciated. Pleura: No pleural effusion or pneumothorax. Bones and soft tissues: No acute, displaced fracture seen. IMPRESSION: Impression: No radiographic evidence of acute cardiopulmonary abnormality. Electronically Signed: Riley Grey MD 07/07/2025 1:46 PM EDT Workstation ID: [id number] us Candido Glynn DO IMG DIAGNOSTIC IMAGING ORDERABLE S Final Result * MRI Brain With & Without Contrast (07/07/2025 1:18 PM EDT) Anatomical Region Laterality Modality Head, Neck N/A Magnetic Resonan ce 07/07/2025 1:33 PM EDT Impressions 07/07/2025 2:06 PM EDT 1.Vague T2/FLAIR signal hyperintensity within the michael and left greater than right lentiform nuclei. Several additional tiny foci of T2/FLAIR signal hyperintensity within the bilateral hemispheric white matter. Findings are somewhat nonspecific and may be related to demyelinating process, chronic microvascular ischemic change, postinfectious/postinflammatory states, or underlying vasculitis. White matter changes have not significantly changed since 05/28/2025. 2.No diffusion restriction is identified to suggest acute infarct. 3.No abnormal contrast enhancement is identified. Electronically Signed: Gagandeep Roca MD 07/07/2025 2:06 PM EDT Workstation ID: [id number] Narrative 07/07/2025 2:06 PM EDT MRI BRAIN W WO CONTRAST Date of Exam: 07/07/2025 12:58 PM EDT Indication: Headache. Abnormal MRI from outside facility. Previous images uploaded. Comparison: Brain MRI dated 05/28/2025 Technique: Routine multiplanar/multisequence sequence images of the brain were obtained before and after the uneventful administration of Vueway. FINDINGS: Vague T2/FLAIR signal hyperintensity within the michael and left greater than right lentiform nuclei. Several additional tiny foci of T2/FLAIR signal hyperintensity within the bilateral hemispheric white matter. Midline structures appear unremarkable. No significant mass effect, intracranial hemorrhage, or hydrocephalus is identified. No abnormal contrast enhancement is seen. Diffusion-weighted sequences demonstrate no acute infarct.The visualized intracranial flow-voids appear unremarkable. The paranasal sinuses and mastoid air cells show no fluid signal. The orbits, globes, retrobulbar soft tissues appear unremarkable. The visualized superficial soft tissues and cervical spine demonstrate no significant abnormality. Procedure Note Gagandeep Roca MD - 07/07/2025 MRI BRAIN W WO CONTRAST Date of Exam: 07/07/2025 12:58 PM EDT Indication: Headache. Abnormal MRI from outside facility. Previousimages uploaded. Comparison: Brain MRI dated 05/28/2025 Technique: Routine multiplanar/multisequence sequence images of the brainwere obtained before and after the uneventful administration of Vueway. FINDINGS: Vague T2/FLAIR signal hyperintensity within the michael and left greater thanright lentiform nuclei. Several additional tiny foci of T2/FLAIR signalhyperintensity within the bilateral hemispheric white matter. Midlinestructures appear unremarkable. No significant mass effect, intracranial hemorrhage, or hydrocephalus isidentified. No abnormal contrast enhancement is seen. Diffusion-weightedsequences demonstrate no acute infarct.The visualized intracranialflow-voids appear unremarkable. The paranasal sinuses and mastoid air cells show no fluid signal. The orbits,globes, retrobulbar soft tissues appear unremarkable. The visualizedsuperficial soft tissues and cervical spine demonstrate no significantabnormality. IMPRESSION: 1.Vague T2/FLAIR signal hyperintensity within the michael and left greaterthan right lentiform nuclei. Several additional tiny foci of T2/FLAIRsignal hyperintensity within the bilateral hemispheric white matter.Findings are somewhat nonspecific and may be related to demyelinating process, chronic microvascular ischemicchange, postinfectious/postinflammatory states, or underlying vasculitis.White matter changes have not significantly changed since 05/28/2025. 2.No diffusion restriction is identified to suggest acute infarct. 3.No abnormal contrast enhancement is identified. Electronically Signed: Gagandeep Roca MD 07/07/2025 2:06 PM EDT Workstation ID: [id number] us Candido [place] DO IM MRI ORDERABLES Final Result * MRI Outside Head (05/28/2025 12:00 AM EDT) Narrative SYSTEMGENERATED, DOCUMENTATION - 07/07/2025 1:07 PM EDT This procedure was auto-finalized with no dictation required. us [employer] [employer] IMG MRI ORDERABLES Final R esult * MRI Outside Head (05/15/2025 12:00 AM EDT) Narrative SYSTEMGENERATED, DOCUMENTATION - 07/07/2025 1:08 PM EDT This procedure was auto-finalized with no dictation required. us [employer] Outside [employer] IMG MRI ORDERABLES Final R esult * XR Outside Extremity (05/05/2025 12:00 AM EDT) Narrative SYSTEMGENERATED, DOCUMENTATION - 07/07/2025 1:20 PM EDT This procedure was auto-finalized with no dictation required. us [employer] IMG DIAGNOSTIC IMAGING ORD ERABLES Final Result documented in this encounter Visit Diagnoses Diagnosis Nonintractable episodic headache, unspecified headache type- Primary Paresthesias Disturbance of skin sensation Lightheadedness Dizziness and giddiness Abnormal brain MRI Nonspecific (abnormal) findings on radiological and other examination of skull and head Elevated liver enzymes Other nonspecific abnormal serum enzyme levels documented in this encounter Administered Medications Inactive Administered Medications - up to 3 most recent administrations Medication Order MAR Action Action Date Dose Rate Site diphenhydrAMINE (BENADRYL) injection 25 mg 25 mg, Intravenous, Once, On Mon07/07/25 at 1309, For 1 dose, 25 mg may be given IV push over less than 1 minute. Caution: Look alike/sound alike drug alert. This med may be ordered in other forms and routes. Before giving verify the last time the drug was given by any route/form. Given 07/07/2025 3:12 PM EDT 25 mg diphenhydrAMINE (BENADRYL) injection 25 mg 25 mg, Intravenous, Once, On Mon07/07/25 at 1722, For 1 dose, 25 mg may be given IV push over less than 1 minute. Caution: Look alike/sound alike drug alert. This med may be ordered in other forms and routes. Before giving verify the last time the drug was given by any route/form. Given 07/07/2025 6:05 PM EDT 25 mg Gadopiclenol (VUEWAY) injection 7 mL 7 mL, Intravenous, Once in Imaging, On Mon07/07/25 at 1334, For 1 dose, Administer undiluted as intravenous bolus at 2 ml/sec. Flush with NS after injection. Given 07/07/2025 1:18 PM EDT 7 mL ketorolac (TORADOL) injection 15 mg 15 mg, Intravenous, Once, On Mon07/07/25 at 1309, For 1 dose, Based on patient request - if ordered for moderate or severe pain, provider allows for administration of a medication prescribed for a lower pain scale. (BKC) If given for pain, use the following pain scale: Mild Pain = Pain Score of 1-3, CPOT 1-2 Moderate Pain = Pain Score of 4-6, CPOT 3-4 Severe Pain = Pain Score of 7-10, CPOT 5-8 Given 07/07/2025 3:16 PM EDT 15 mg ketorolac (TORADOL) injection 15 mg 15 mg, Intravenous, Once, On Mon07/07/25 at 1722, For 1 dose, Based on patient request - if ordered for moderate or severe pain, provider allows for administration of a medication prescribed for a lower pain scale. (BKC) If given for pain, use the following pain scale: Mild Pain = Pain Score of 1-3, CPOT 1-2 Moderate Pain = Pain Score of 4-6, CPOT 3-4 Severe Pain = Pain Score of 7-10, CPOT 5-8 Given 07/07/2025 6:05 PM EDT 15 mg metoclopramide (REGLAN) injection 10 mg 10 mg, Intravenous, Once, On Mon07/07/25 at 1309, For 1 dose, Doses of 10 mg or less can be given IV push undiluted over 1 to 2 minutes Given 07/07/2025 3:11 PM EDT 10 mg midazolam (VERSED) injection 1 mg 1 mg, Intravenous, Once, On Mon07/07/25 at 1449, For 1 dose, If given IV Push: give slowly over at least 2 minutes, unless provider at bedside for induction. (KAREL) Given 07/07/2025 3:11 PM EDT 1 mg prochlorperazine (COMPAZINE) injection 5 mg 5 mg, Intravenous, Once, On Mon07/07/25 at 1722, For 1 dose, If multiple N/V medications ordered, use in the following order: Ondansetron, Prochlorperazine, Promethazine. Use PO unless patient refuses or patient unable to swallow. Given 07/07/2025 6:06 PM EDT 5 mg sodium chloride 0.9 % bolus 1,000 mL 1,000 mL, Intravenous, at 2,000 mL/hr, Administer over 0.5 Hours, Once, On Mon07/07/25 at 1309, For 1 dose New Bag 07/07/2025 3:09 PM EDT 1,000 mL 2000 mL/hr sodium chloride 0.9 % flush 10 mL 10 mL, Intravenous, As Needed, Line Care, Starting on Mon07/07/25 at 1244 documented in this encounter Active and Recently Administered Medications Times are shown in EDT. Scheduled Medication Order 07/05/2025 07/06/2025 07/07/2025 diphenhydrAMINE (BENADRYL) injection 25 mg (COMPLETED) 25 mg, Intravenous, Once, On Mon07/07/25 at 1309, For 1 dose, 25 mg may be given IV push over less than 1 minute. Caution: Look alike/sound alike drug alert. This med may be ordered in other forms and routes. Before giving verify the last time the drug was given by any route/form. 1512 (Given - Provid er: Almita Hernandez) diphenhydrAMINE (BENADRYL) injection 25 mg (COMPLETED) 25 mg, Intravenous, Once, On Mon07/07/25 at 1722, For 1 dose, 25 mg may be given IV push over less than 1 minute. Caution: Look alike/sound alike drug alert. This med may be ordered in other forms and routes. Before giving verify the last time the drug was given by any route/form. 1805 (Given - Provid er: Lacey Prescott RN) Gadopiclenol (VUEWAY) injection 7 mL (COMPLETED) 7 mL, Intravenous, Once in Imaging, On Mon07/07/25 at 1334, For 1 dose, Administer undiluted as intravenous bolus at 2 ml/sec. Flush with NS after injection. 1318 (Given - Provid er: Nithya Pitt) ketorolac (TORADOL) injection 15 mg (COMPLETED) 15 mg, Intravenous, Once, On Mon07/07/25 at 1309, For 1 dose, Based on patient request - if ordered for moderate or severe pain, provider allows for administration of a medication prescribed for a lower pain scale. (BKC) If given for pain, use the following pain scale: Mild Pain = Pain Score of 1-3, CPOT 1-2 Moderate Pain = Pain Score of 4-6, CPOT 3-4 Severe Pain = Pain Score of 7-10, CPOT 5-8 151 (Given - Provid er: Almitatierra Hernandez) ketorolac (TORADOL) injection 15 mg (COMPLETED) 15 mg, Intravenous, Once, On Mon07/07/25 at 1722, For 1 dose, Based on patient request - if ordered for moderate or severe pain, provider allows for administration of a medication prescribed for a lower pain scale. (BKC) If given for pain, use the following pain scale: Mild Pain = Pain Score of 1-3, CPOT 1-2 Moderate Pain = Pain Score of 4-6, CPOT 3-4 Severe Pain = Pain Score of 7-10, CPOT 5-8 180 (Given - Provid er: Lacey Prescott RN) metoclopramide (REGLAN) injection 10 mg (COMPLETED) 10 mg, Intravenous, Once, On Mon07/07/25 at 1309, For 1 dose, Doses of 10 mg or less can be given IV push undiluted over 1 to 2 minutes 151 (Given - Provid er: Almitatierra Hernandez) midazolam (VERSED) injection 1 mg (COMPLETED) 1 mg, Intravenous, Once, On Mon07/07/25 at 1449, For 1 dose, If given IV Push: give slowly over at least 2 minutes, unless provider at bedside for induction. (KAREL) 151 (Given - Provid er: Almita Hupipe) prochlorperazine (COMPAZINE) injection 5 mg (COMPLETED) 5 mg, Intravenous, Once, On Mon07/07/25 at 1722, For 1 dose, If multiple N/V medications ordered, use in the following order: Ondansetron, Prochlorperazine, Promethazine. Use PO unless patient refuses or patient unable to swallow. 180 (Given - Provid er: Lacey Prescott RN) sodium chloride 0.9 % bolus 1,000 mL (COMPLETED) 1,000 mL, Intravenous, at 2,000 mL/hr, Administer over 0.5 Hours, Once, On Mon07/07/25 at 1309, For 1 dose 150 (New Bag - Prov ider: Almita Hernandez)1539 (Stopped - Provider: Lacey Prescott RN) PRN Medication Order 07/05/2025 07/06/2025 07/07/2025 sodium chloride 0.9 % flush 10 mL 10 mL, Intravenous, As Needed, Line Care, Starting on 07/07/25 at 1244 documented in this encounter Care Teams Production Superintendent Relationship Specialty Start Date End Date [place], [place] [address] PCP - General Nurse Practitioner 07/07/25 documented as of this encounter
--- NOTE | 2025-08-04 14:19 | XR_ITS ---
FINAL REPORT CLINICAL HISTORY: shortness of breath FINDINGS: PA and lateral views of the chest were obtained. There is no prior exam for comparison. The cardiac and mediastinal silhouettes are within normal limits. The lungs are well-expanded. There is no acute infiltrate or edema. There is bronchial thickening. There is no pleural effusion or pneumothorax. No acute osseous abnormality is identified. IMPRESSION: Bronchial thickening without acute infiltrate. Reviewed, Interpreted and Dictated by Samuel Morillo MD Transcribed by ALESSANDRA Miller Authenticated and [facility]
--- NOTE | 2025-08-04 14:19 | XR_ITS ---
FINAL REPORT CLINICAL HISTORY: abd bloating, pain COMPARISON: None. FINDINGS: 3 views of the abdomen were obtained. There is a nonspecific bowel gas pattern with no evidence of obstruction. There are changes from prior lumbar fusion of L5-S1 and bilateral SI joint fusion. There is no abnormal calcification identified. IMPRESSION: Nonspecific nonobstructive bowel gas pattern. Reviewed, Interpreted and Dictated by Samuel Morillo MD Transcribed by ALESSANDRA Miller Authenticated and [facility]
--- OUTSIDE RECORDS SUMMARY | 2025-08-04 14:20 | XMS_ITS | Clinical Summary ---
[facility] Organization [facility] Address [address] [place] [address] Care Team Providers Care Sharepoint Application Architect Name Role Phone Provider, No Known Primary Care Provider Unavail able Allergies Active Allergy Reactions Criticality Noted Date Comments Bupropion Anaphylaxis High 07/07/2025 Encounters Date Type Department Care Team Description 07/07/2025 12:21 PM EDT - 07/07/2025 6:08 PM EDT Emergency [facility] [address] [place] [phone] Ponce Glynn DO Nonintractable episodic headache, unspecified headache type (Primary Dx); Paresthesias; Lightheadedness; Abnormal brain MRI; Elevated liver enzymes Discharge Disposition: Home or Self Care 07/07/2025 Travel from Last 3 Months Social History Tobacco Use Types Packs/Day Years [...] Mass Index 22.55 07/07/2025 12:17 PM EDT Plan of Treatment Health Maintenance Due Date Last Done Comments ANNUAL PHYSICAL 1981 Annual Gynecologic Pelvic an d Breast Exam 1981 HEPATITIS C SCREENING 1981 MAMMOGRAM 2021 INFLUENZA VACCINE 05/02/2025 TDAP/TD VACCINES (2 - Td or Tdap) 05/30/2035 025 Pneumococcal Vaccine 0-49 Aged Out No longer eligible based on patient's age to complete this topic Procedures Procedure Name Priority Date/Time Associated Diagnosis Comments LIGHT BLUE TOP STAT 07/07/2025 3:08 PM EDT LAWRENCE TOP STAT 07/07/2025 3:08 PM EDT GOLD TOP - SST STAT 07/07/2025 3:08 PM EDT LAVENDER TOP STAT 07/07/2025 3:08 PM EDT DK GREEN TOP STAT 07/07/2025 3:08 PM EDT CBC AND DIFFERENTIAL STAT 07/07/2025 3:08 PM EDT ACETAMINOPHEN LEVEL STAT 07/07/2025 3 :08 PM EDT CBC WITH AUTO DIFFERENTIAL STAT 07/07/2025 3:08 PM EDT COMPREHENSIVE METABOLIC PANEL STAT 07/07/2025 3:08 PM EDT RAINBOW DRAW STAT 07/07/2025 3:08 PM EDT URINALYSIS W/ [...] OUTSIDE EXTREMITY Routine 05/05/2025 12:00 AM EDT from Last 3 Months Results * Lawrence Top (07/07/2025 3:08 PM EDT) Extra Tube Hold for add-ons. 07/07/2025 3:31 PM EDT [facility] Comment:Auto resulted. Blood Line / Unknown 07/07/2025 3: 08 PM EDT 07/07/2025 3:26 PM EDT us Ponce Pratherce DO LAB BLOOD ORDER ONLY Final Resul t [facility]
[address] [place] [address], * Gold Top - SST (07/07/2025 3:08 PM EDT) Extra Tube Hold for add-ons. 07/07/2025 3:31 PM EDT [facility] Comment:Auto resulted. Blood Line / Unknown 07/07/2025 3: 08 PM EDT 07/07/2025 3:26 PM EDT us Ponce Greenevers DO LAB BLOOD ORDER ONLY Final Resul t Performing Organization Address City/[facility]/ZIP Co de Phone Number [facility]
[address] [place] [address], * Green Top (Gel) (07/07/2025 3:08 PM EDT) Extra Tube Hold for add-ons. 07/07/2025 3:31 PM EDT [facility] Comment:Auto resulted. Blood Line / Unknown 07/07/2025 3: 08 PM EDT 07/07/2025 3:26 PM EDT [facility] LAB BLOOD ORDER ONLY Final Resul t Performing Organization Address [facility] Co de Phone Number [facility]
[address] [place] [address], * (ABNORMAL) CBC Auto Differential (07/07/2025 3:08 PM EDT) WBC 11.26(H) 3.40 - 10.80 10*3/mm3 07/07/2025 3:29 PM EDT [facility] RBC 3.64(L) 3.77 - 5.28 10*6/mm3 07/07/2025 3:29 PM EDT [facility] Hemoglobin 12.5 12.0 - 15.9 g/dL 07/07/2025 3:29 PM EDT [facility] Hematocrit 37.8 34.0 - 46.6 % 07/07/2025 3:29 PM EDT [facility] MCV 103.8(H) 79.0 - 97.0 fL 07/07/2025 3:29 PM EDT [facility] MCH 34.3(H) 26.6 - 33.0 pg 07/07/2025 3:29 PM EDT [facility] MCHC 33.1 31.5 - 35.7 g/dL 07/07/2025 3:29 PM EDT [facility] RDW 13.4 12.3 - 15.4 % 07/07/2025 3:29 PM EDT [facility] RDW-SD 52.0 37.0 - 54.0 fl 07/07/2025 3:29 PM EDT [facility] MPV 9.2 6.0 - 12.0 fL 07/07/2025 3:29 PM EDT [facility] Platelets 331 140 - 450 10*3/mm3 07/07/2025 3:29 PM EDT [facility] Neutrophil % 65.1 42.7 - 76.0 % 07/07/2025 3:29 PM EDT [facility] Lymphocyte % 26.7 19.6 - 45.3 % 07/07/2025 3:29 PM EDT [facility] Monocyte % 6.1 5.0 - 12.0 % 07/07/2025 3:29 PM EDT [facility] Eosinophil % 1.3 0.3 - 6.2 % 07/07/2025 3:29 PM EDT [facility] Basophil % 0.4 0.0 - 1.5 % 07/07/2025 3:29 PM EDT [facility] Immature Grans % 0.4 0.0 - 0.5 % 07/07/2025 3:29 PM EDT [facility] Neutrophils, Absolute 7.32(H) 1.70 - 7.00 10*3/mm3 07/07/2025 3:29 PM EDT [facility] Lymphocytes, Absolute 3.01 0.70 - 3.10 10*3/mm3 07/07/2025 3:29 PM EDT [facility] Monocytes, Absolute 0.69 0.10 - 0.90 10*3/mm3 07/07/2025 3:29 PM EDT [facility] Eosinophils, Absolute 0.15 0.00 - 0.40 10*3/mm3 07/07/2025 3:29 PM EDT [facility] Basophils, Absolute 0.04 0.00 - 0.20 10*3/mm3 07/07/2025 3:29 PM EDT [facility] Immature Grans, Absolute 0.05 0.00 - 0.05 10*3/mm3 07/07/2025 3:29 PM EDT [facility] nRBC 0.0 0.0 - 0.2 /100 WBC 07/07/2025 3:29 PM EDT [facility] Blood Line / Unknown 07/07/2025 3: 08 PM EDT 07/07/2025 3:26 PM EDT us Ponce Greenevers DO LAB BLOOD ORDERABLES Final Resul t Performing Organization Address [facility] Phone Number [facility]
[address] [place] [address], * Lavender Top (07/07/2025 3:08 PM EDT) Extra Tube hold for add-on 07/07/2025 3:31 PM EDT [facility] Comment:Auto resulted Blood Line / Unknown 07/07/2025 3: 08 PM EDT 07/07/2025 3:26 PM EDT us Ponce Greenevers DO LAB BLOOD ORDER ONLY Final Resul t Performing Organization Address [facility] de Phone Number [facility]
[address] [place] [address], [place] [phone] * Light Blue Top (07/07/2025 3:08 PM EDT) Extra Tube Hold for add-ons. 07/07/2025 3:31 PM EDT [facility] Comment:Auto resulted Blood Line / Unknown 07/07/2025 3: 08 PM EDT 07/07/2025 3:26 PM EDT us Ponce Greenevers DO LAB BLOOD ORDER ONLY Final Resul t Performing Organization Address City/[facility] Co de Phone Number [facility]
[address] [place] [address], * Acetaminophen Level (07/07/2025 3:08 PM EDT) Pathologist [facility] Acetaminophen <5.0 0.0 - 30.0 mcg/mL 07/07/2025 4:51 PM EDT [facility] Blood Line / Unknown 07/07/2025 3: 08 PM EDT 07/07/2025 3:26 PM EDT us Ponce Glynn DO LAB BLOOD ORDERABLES Final Resul t [facility]
[address] [place] [address], * (ABNORMAL) Comprehensive Metabolic Panel (07/07/2025 3:08 PM EDT) Pathologist [facility] Glucose 85 65 - 99 mg/dL 07/07/2025 3:50 PM EDT [facility] BUN 6.0 6.0 - 20.0 mg/dL 07/07/2025 3:50 PM EDT [facility] Creatinine 0.68 0.57 - 1.00 mg/dL 07/07/2025 3:50 PM EDT [facility] Sodium 141 136 - 145 mmol/L 07/07/2025 3:50 PM EDT [facility] Potassium 3.8 3.5 - 5.2 mmol/L 07/07/2025 3:50 PM EDT [facility] Chloride 107 98 - 107 mmol/L 07/07/2025 3:50 PM EDT [facility] CO2 22.4 22.0 - 29.0 mmol/L 07/07/2025 3:50 PM EDT [facility] Calcium 8.7 8.6 - 10.5 mg/dL 07/07/2025 3:50 PM EDT [facility] Total Protein 6.2 6.0 - 8.5 g/dL 07/07/2025 3:50 PM EDT [facility] Albumin 4.0 3.5 - 5.2 g/dL 07/07/2025 3:50 PM EDT [facility] ALT (SGPT) 478(H) 1 - 33 U/L 07/07/2025 3:50 PM EDT [facility] AST (SGOT) 159(H) 1 - 32 U/L 07/07/2025 3:50 PM EDT [facility] Alkaline Phosphatase 72 39 - 117 U/L 07/07/2025 3:50 PM EDT [facility] Total Bilirubin 0.4 0.0 - 1.2 mg/dL 07/07/2025 3:50 PM EDT [facility] Globulin 2.2 gm/dL 07/07/2025 3:50 PM EDT [facility] Comment:Calculated Result A/G Ratio 1.8 g/dL 07/07/2025 3:50 PM EDT [facility] BUN/Creatinine Ratio 8.8 7.0 - 25.0 07/07/2025 3:50 PM EDT [facility] Anion Gap 11.6 5.0 - 15.0 mmol/L 07/07/2025 3:50 PM EDT [facility] eGFR 111.0 >60.0 mL/min/1.7 3 07/07/2025 3:50 PM EDT [facility] Blood Line / Unknown 07/07/2025 3: 08 PM EDT 07/07/2025 3:26 PM EDT [facility] - 07/07/2025 3:50 PM EDT GFR [...] not include race as a factor us Poncejose daniel Glynn LAB BLOOD ORDERABLES Final Resul t [facility]
[address] [place] [address], * Urinalysis With Microscopic If Indicated (No Culture) - Urine, Clean Catch (07/07/2025 2:28 PM EDT) Color, UA Yellow Yellow, Straw 07/07/2025 3:06 PM EDT [facility] Appearance, UA Clear Clear 07/07/2025 3:06 PM EDT [facility] pH, UA 7.0 5.0 - 8.0 07/07/2025 3:06 PM EDT [facility] Specific [place], UA 1.010 1.005 - 1.030 07/07/2025 3:06 PM EDT [facility] Glucose, UA Negative Negative 07/07/2025 3:06 PM EDT [facility] Ketones, UA Negative Negative 07/07/2025 3:06 PM EDT [facility] Bilirubin, UA Negative Negative 07/07/2025 3:06 PM EDT [facility] Blood, UA Negative Negative 07/07/2025 3:06 PM EDT [facility] Protein, UA Negative Negative 07/07/2025 3:06 PM EDT [facility] Leuk Esterase, UA Negative Negative 07/07/2025 3:06 PM EDT [facility] Nitrite, UA Negative Negative 07/07/2025 3:06 PM EDT [facility] Urobilinogen, UA 0.2 E.U./dL 0.2 - 1.0 E.U./dL 07/07/2025 3:06 PM EDT [facility] Urine Urine specimen obtained by clean catch procedure / Unknown Collection / Unknown 07/07/2025 2:28 PM EDT 07/07/2025 2:58 PM EDT Narrative [facility] - 07/07/2025 3:06 PM EDT Urine microscopic not indicated. Ponce Glynn DO URINE ORDERABLES Final Result Performing Organization Address City/[facility]/ZIP Co de Phone Number [facility]
[address] [place] [address], * , Urine - Urine, Clean Catch (07/07/2025 2:28 PM EDT) HCG, Urine QL Negative Negative DISK DIFFUSION 07/07/2025 3:06 PM EDT [facility] Urine Urine specimen obtained by clean catch procedure / Unknown Collection / Unknown 07/07/2025 2:28 PM EDT 07/07/2025 2:58 PM EDT Ponce Glynn DO URINE ORDERABLES Final Result Performing Organization Address [facility] Co mn Phone Number [facility]
[address] [place] [address], * ECG 12 Lead Other; Fatigue (07/07/2025 [...] 12:25:52 PM Referred By: EDMD Confirmed By: PONCE GLYNN MD Procedure Note Ponce Glynn DO - 07/17/2025 Test Reason : [...] 12:25:52 PM Referred By: EDMD Confirmed By: PONCE GLYNN MD Ponce Glynn DO ECG ORDERABLES Final Result ECG * XR Chest 1 View (07/07/2025 1:43 PM EDT) Anatomical Region Laterality Modality Body N/A Radiographic Claudia ging 07/07/2025 1:45 PM EDT Impressions 07/07/2025 1:46 PM EDT Impression: No radiographic evidence of acute cardiopulmonary abnormality. Electronically Signed: Riley Grey MD 07/07/2025 1:46 PM EDT Workstation ID: [id number] Narrative 07/07/2025 1:46 PM EDT XR CHEST [...] MD 07/07/2025 1:46 PM EDT Workstation ID: [id number] us Ponce Glynn DO IMG DIAGNOSTIC IMAGING ORDERABLE S [...] MD 07/07/2025 2:06 PM EDT Workstation ID: [id number] Narrative 07/07/2025 2:06 PM EDT MRI BRAIN [...] MD 07/07/2025 2:06 PM EDT Workstation ID: [id number] us Ponce Gretta DO IMG MRI ORDERABLES Final Result * MRI Outside Head (05/28/2025 12:00 AM EDT) Only the most recent of2 resultswithin the time period is included. Narrative SYSTEMGENERATED, DOCUMENTATION - 07/07/2025 1:07 PM EDT This procedure was auto-finalized with no dictation required. us [employer] IMG MRI ORDERABLES Final R esult * XR Outside Extremity (05/05/2025 12:00 AM EDT) Narrative SYSTEMGENERATED, DOCUMENTATION - 07/07/2025 1:20 PM EDT This procedure was auto-finalized with no dictation required. us [employer] IMG DIAGNOSTIC IMAGING ORD ERABLES Final Result from Last 3 Months Insurance [employer] Care Teams Sharepoint Application Architect Relationship Specialty Start Date End Date Provider, No Known [facility] [place] [place] [address] PCP - General Nurse Practitioner 07/07/25
--- OUTSIDE RECORDS SUMMARY | 2025-08-04 14:20 | XMS_ITS | Clinical Summary ---
Author Organization [employer] ([place], [place], [place], [place], [place]) Address [address] [place] [address] Care Team Providers Care Supervisor Heat Treating Name Role Phone Unavailable Primary Care Provider Unavailabl e Allergies Active Allergy Reactions Criticality Noted Date Comments Bupropion Other (See Comments) Low 11/30/2015 Medications amitriptyline (ELAVIL) 10 MG tablet Take 1 tablet (10 mg total) by mouth nightly. Active cefadroxil (DURICEF) 500 MG capsule Take 1 capsule (500 mg total) by mouth 2 (two) times daily. 5 Active citalopram (CeleXA) 10 MG tablet Take 1 tablet (10 mg total) by mouth daily. 5 Active diclofenac sodium 1 % gel Apply 2 g topically 4 (four) times daily. 5 Active fluconazole (DIFLUCAN) 100 MG tablet Take 1 tablet (100 mg total) by mouth daily. 5 Active ibuprofen (MOTRIN) 800 MG tablet Take 1 tablet (800 mg total) by mouth every 8 (eight) hours as needed. Active lidocaine-prilocai ne (EMLA) 2.5-2.5 % cream Apply topically as needed. 5 Active meloxicam (MOBIC) 15 MG tablet Take 1 tablet (15 mg total) by mouth daily. Active OLANZapine (ZyPREXA) 10 MG tablet Take 0.5 tablets (5 mg total) by mouth 2 (two) times daily. 5 Active omeprazole (PriLOSEC) 20 MG capsule Take 1 capsule (20 mg total) by mouth daily. Active ondansetron (ZOFRAN-ODT) 4 MG disintegrating tablet 1 tablet (4 mg total) every 8 (eight) hours as needed. Active Encounters Date Type Department Care Team Description 07/04/2025 3:30 PM EDT [facility] [address] [place] [address] Marciano Chandler MD Retention of urine (Primary Dx) 07/03/[address] [place] [address] Marciano Chandler MD Appointment (PHONE CALL) 06/06/2025 Outside Orders [facility] [address] [place] [address] Maegan Benjamin APRN Retention of urine (Primary Dx) from Last 3 Months Social History Tobacco [...] - - Body Mass Index - - Plan of Treatment Upcoming Encounters Date Type Department Care Team (Late st Contact Info) Description 08/06/2025 10:00 AM EST Office Visit [address] [place] [address] Marciano Chandler MD [address] [place] [address] [address] [place] [address] Health Maintenance Due Date Last Done Comments Depression Screening (12+) 1993 Tobacco Cessation Counseling and Screening (12+) 10/09 HIV Screening 1996 Hepatitis C Screening 1999 Pneumococcal Vaccine: 0-49 Years (1 of 2 - PCV) 2000 Lipid Panel 2001 Pap Smear 2002 Breast Cancer Screening 2021 COVID-19 VACCINE (1 - season) 2025 Influenza Vaccine (#1) 2025 DTAP/TDAP/TD VACCINES (2 - Td or Tdap) 05/30/2035 Procedures Procedure Name Priority Date/Time Associated Diagnosis Comments BLADDER SCAN - CLINIC PERFORMED Routine 07/04/2025 3:38 PM EDT Retention of urine from Last 3 Months Results * Bladder Scan - clinic performed (07/04/2025 3:38 PM EDT) Volume: 35ml us Marciano Chandler MD UROLOGY ORDERABLES Final Result from Last 3 Months Insurance [employer] [facility]
--- OUTSIDE RECORDS SUMMARY | 2025-08-04 14:20 | XMS_ITS | Encounter Summary ---
Author Organization [employer] ([place], [place], [place], [place], [place]) Address [address] [place] [address] Care Team Providers Care Merchandise Planner Name Role Phone Unavailable Primary Care Provider Unavailabl e Reason for Referral * Consultation (Routine) - Closed Specialty Diagnoses / Procedures Referred By Contcarrie t Referred To Contact Urology Diagnoses Retention of urine Maegan Benjamin APRN [address] [address] Phone: tel: fax: [facility] [address] [place] [address] Phone: tel: fax: Referral ID Status Reason Start Date Expiration Date V isits Requested Visits Authorized [id number] Closed Specialty Services Required 06/06/2025 06/06/2026 1 1 Encounter Details Date Type Department Care Team (Late st Contact Info) Description 06/06/2025 Outside Orders [facility] [place] [facility] [address] [place] [address] Maegan Benjamin APRN [phone] [address] Retention of urine (Primary Dx) Social History Tobacco Use Types Packs/Day Years Used Date Smoking Tobacco: Never Assessed Comments Unknown Sex and Gender Information Value Date Recorded Sex Assigned at Not on file Legal Sex Female 6:51 PM CDT Gender Identity Not on file Sexual Orientation Not on file documented as of this encounter Plan of Treatment Upcoming Encounters Date Type Department Care Team (Late st Contact Info) Description 08/06/2025 10:00 AM EST Office Visit [facility] [address] [place] [address] Marciano Chandlre MD [address] [place] [address] Scheduled Referrals Name Type Priority Associated Diagnoses Order Schedule Ambulatory referral to Urology Outpatient Referral Routine Retention of urine Expected: 06/06/2025, Expires: 06/06/2026 documented as of this encounter Visit Diagnoses Diagnosis Retention of urine- Primary Unspecified retention of urine documented in this encounter
--- OUTSIDE RECORDS SUMMARY | 2025-08-04 14:20 | XMS_ITS | Encounter Summary ---
Author Organization [employer] ([place], [place], [place], [place], [place]) Address [address] [place] [address] Care Team Providers Care Complaint Investigator Name Role Phone Unavailable Primary Care Provider Unavailabl e Reason for Visit * Reason Onset Date Comments Appointment 07/03/2025 PHONE CALL Encounter Details Date Type Department Care Team (Late Contact Info) Description 07/03/2025 Telephone [facility] - [facility] [address] [facility] [address] [place] [address] Marciano Chandler MD [address] [place], [place] [id number] Appointment (PHONE CALL) Social History Tobacco Use Types Packs/Day Years Used Date Smoking Tobacco: Never Assessed Comments Unknown Sex and Gender Information Value Date Recorded Sex Assigned at Not on file Legal Sex Female 6:51 PM CDT Gender Identity Not on file Sexual Orientation Not on file documented as of this encounter Miscellaneous Notes * Telephone Encounter - Jose Alfredo Gutierrez - 07/03/2025 3:22 PM EDT LEFT - APPT 07.04.25 documented in this encounter Plan of Treatment Upcoming Encounters Date Type Department Care Team (Late Contact Info) Description 08/06/2025 10:00 AM EST Office Visit [facility] - [facility] [address] [facility] [address] [place] [address] Marciano Chandler MD [address] [place] [address] [address] [place] [address] documented as of this encounter Visit Diagnoses Not on filedocumented in this encounter
--- OUTSIDE RECORDS SUMMARY | 2025-08-04 14:20 | XMS_ITS | Clinical Summary ---
Author Organization Healthcare Address [address] [place] [address] Care Team Providers Care Independent Distributor Name Role Phone Maegan Benjamin APRN Primary Care Provider [phone]- [phone] Allergies Active Allergy Reactions Criticality Noted Date Comments Bupropion Unknown - Patient st ates they do not know rxn details Low 11/30/2015 Erythromycin Unknown - Patient st ates they do not know rxn details Low 11/30/2015 Medications meloxicam (Mobic) 15 MG tablet Take 1 tablet by mouth daily. 5 Active tiZANidine (Zanaflex) 2 MG tablet TAKE ONE TABLET BY MOUTH EVERY 8 HOURS NEEDED FOR muscle spasticity 5 Active OLANZapine (ZyPREXA) 5 MG tablet Take 1 tablet by mouth daily. 5 Active omeprazole (PriLOSEC) [address] capsule Take 1 capsule by mouth daily. 5 Active ondansetron ODT (Zofran-ODT) 4 MG disintegrating tablet DISSOLVE ONE TABLET BY MOUTH EVERY 8 HOURS NEEDED FOR NAUSEA AND VOMITING 5 Active citalopram (CeleXA) 10 MG tablet Take 1 tablet by mouth daily. 5 Active amitriptyline (Elavil) 10 MG tablet Take 1 tablet by mouth nightly. 5 Active ibuprofen 200 MG tablet Take 4 tablets by mouth every 6 hours as needed for mild pain. Active Active Problems No known active problems Encounters Date Type Department Care Team Description 06/17/2025 1:20 PM EDT Office Visit [facility] [address] [place] [address] Maldonado Martinez MD Laceration of right forearm, initial encounter (Primary Dx) 06/17/2025 Travel 06/06/2025 1:50 PM EDT Office Visit [facility] [address] [place] [phone] Antonia Arora PA Laceration of right forearm, initial encounter (Primary Dx) 06/06/2025 Travel 06/05/2025 Refill [facility] [address] [place] [phone] Antonia Arora PA 06/03/2025 Telephone [facility] [address] [place] [phone] Antonia Arora PA HCN - Patient Message 06/03/[address] [address] Antonia Arora PA 05/30/2025 Travel 05/29/2025 11:24 PM EDT - 05/30/2025 11:36 AM EDT Hospital Encounter [facility] Emergency Department [address] [place] [address] Theo Blank MD Dahlgren, Amy E, MD [...] [facility]-HIV Screening 1981 [facility]-Hepatitis C Screening 1981 [facility]-/Child/Adol SDOH Screenings 1981 [facility]-Varicella Vaccines (1 of [...] 2008 [facility]Cervical Cancer Screening 2011 [facility]-HPV/Cotest 2011 [id number] Vaccine (1 - 20 24-25 season) 2025 [...] MD LAB URINE ORDERABLES Final Re sult [facility] [address] [place] [address] * (ABNORMAL) Opiates Confirm Urine (05/30/2025 12:31 AM EDT) Codeine <50 <50 ng/mL 06/01/2025 3:06 PM EDT [facility] Codeine Glucuronide <50 <50 ng/mL 06/01/2025 3:06 PM EDT [facility] Desmethyl Tramadol <50 <50 ng/mL 06/01/2025 3:06 PM EDT [facility] EDDP - Methadone Metabolite <50 <50 ng/mL 06/01/2025 3:06 PM EDT [facility] Hydrocodone <50 <50 ng/mL 06/01/2025 3:06 PM EDT [facility] Hydromorphone <50 <50 ng/mL 06/01/2025 3:06 PM EDT [facility] Hydromorphone Glucuronide <50 <50 ng/mL 06/01/2025 3:06 PM EDT [facility] Comment:Metabolite of Hydrom orphone Meperidine <50 <50 ng/mL 06/01/2025 3:06 PM EDT [facility] Methadone <50 <50 ng/mL 06/01/2025 3:06 PM EDT [facility] 6 Monoacetyl morphine <10 <10 ng/mL 06/01/2025 3:06 PM EDT [facility] Morphine 381(H) <50 ng/mL 06/01/2025 3:06 PM EDT [facility] Morphine Glucuronide >1,000(H) <50 ng/mL 06/01/2025 3:06 PM EDT [facility] Comment:Metabolite of Morphi ne Naloxone <50 <50 ng/mL 06/01/2025 3:06 PM EDT [facility] Naloxone Glucuronide <50 <50 ng/mL 06/01/2025 3:06 PM EDT [facility] Comment:Metabolite of Naloxo ne Normeperidine <50 <50 ng/mL 06/01/2025 3:06 PM EDT [facility] Tramadol <50 <50 ng/mL 06/01/2025 3:06 PM EDT [facility] Urine Urine specimen obtained by clean catch procedure / Unknown Non-blood Collection / Unknown 05/30/2025 12:31 AM EDT 05/30/2025 12:33 AM EDT Narrative [facility] - 06/01/2025 3:06 PM EDT Drug analysis is confirmed by LC-MS/MS (LC Tandem Mass Spectrometry) on Urine specimens. This test was developed and its performance characteristics determined by [facility]. It has not been cleared or approved by the FDA. The laboratory is regulated under CLIA as qualified to perform high-complexity testing. This test is used for clinical purposes. Testing is performed at the [facility], [facility] Laboratory. Theo Blank MD LAB URINE ORDERABLES Final Re sult [facility] [address] [place] [address] * Drug Abuse Screen, Urine (05/30/2025 12:31 AM EDT) [facility] Amphetamine Screen Urine Negative Cutoff: 500 ng/mL 05/30/2025 1:10 AM EDT [facility] Benzodiazepines Screen Urine Negative Cutoff: 200 ng/mL 05/30/2025 1:10 AM EDT [facility] Cannabinoid Screen Urine Presumptive positive. Confirmation by LC-MS/MS to follow. Cutoff: 50 ng/mL 05/30/2025 1:10 AM EDT [facility] Cocaine Screen Urine Negative Cutoff: 300 ng/mL 05/30/2025 1:10 AM EDT [facility] Barbiturate Screen Urine Negative Cutoff: 200 ng/mL 05/30/2025 1:10 AM EDT [facility] Opiate Screen Urine Presumptive positive. Confirmation by LC-MS/MS to follow. Cutoff: 300 ng/mL 05/30/2025 1:10 AM EDT [facility] Methadone Screen Urine Negative Cutoff: 300 ng/mL 05/30/2025 1:10 AM EDT [facility] Buprenorphine Screen Urine Negative Cutoff: 10 ng/mL 05/30/2025 1:10 AM EDT [facility] Fentanyl Screen Urine Presumptive positive. Confirmation by LC-MS/MS to follow. Cutoff: 1 ng/mL 05/30/2025 1:10 AM EDT [facility] Oxycodone Screen Urine Negative Cutoff: 100 ng/mL 05/30/2025 1:10 AM EDT [facility] Urine Urine specimen obtained by clean catch procedure / Unknown Non-blood Collection / Unknown 05/30/2025 12:31 AM EDT 05/30/2025 12:33 AM EDT us Theo Blank MD LAB URINE ORDERABLES Final Re sult Performing Organization Address [facility]/ZIP Co de Phone Number [facility] [address] [place] [address] * (ABNORMAL) THC Urine Confirm LCMSMS (05/30/2025 12:31 AM EDT) 9 Carboxy THC >250(H) <10 ng/mL 06/01/2025 3:06 PM EDT [facility] 9 Carboxy THC Glucuronide >500(H) <25 ng/mL 06/01/2025 3:06 PM EDT [facility] Urine Urine specimen obtained by clean catch procedure / Unknown Non-blood Collection / Unknown 05/30/2025 12:31 AM EDT 05/30/2025 12:33 AM EDT Narrative [facility] - 06/01/2025 3:06 PM EDT Drug analysis is confirmed by LC-MS/MS (LC Tandem Mass Spectrometry) on Urine specimens. This test was developed and its performance characteristics determined by [facility]. It has not been cleared or approved by the FDA. The laboratory is regulated under CLIA as qualified to perform high-complexity testing. This test is used for clinical purposes. Testing is performed at the [facility]. hTeo Blank MD LAB URINE ORDERABLES Final Re sult Performing Organization Address [facility] Co de Phone Number [facility] [address] [place] [address] * (ABNORMAL) Fentanyl Urine Confirm (05/30/2025 12:31 AM EDT) Fentanyl 5(H) <1 ng/mL 06/01/2025 3:06 PM EDT [facility] Norfentanyl 2(H) <2 ng/mL 06/01/2025 3:06 PM EDT [facility] Urine Urine specimen obtained by clean catch procedure / Unknown Non-blood Collection / Unknown 05/30/2025 12:31 AM EDT 05/30/2025 12:33 AM EDT Narrative [facility] - 06/01/2025 3:06 PM EDT Drug analysis is confirmed by LC-MS/MS (LC Tandem Mass Spectrometry) on Urine specimens. This test was developed and its performance characteristics determined by [facility]. It has not been cleared or approved by the FDA. The laboratory is regulated under CLIA as qualified to perform high-complexity testing. This test is used for clinical purposes. Testing is performed at the [facility], [facility]. us Theo Blank MD LAB URINE ORDERABLES Final Re sult [facility] [address] [place] [address] * (ABNORMAL) Urinalysis with reflex microscopic (Culture NOT Included) (05/30/2025 12:31 AM EDT) Color, Urine Yellow LAB URINALYSIS - AUTOMATED METHOD 05/30/2025 12:58 AM EDT [facility] Clarity, Urine Clear LAB URINALYSIS - AUTOMATED METHOD 05/30/2025 12:58 AM EDT [facility] Spec [place], Urine 1.011 1.005 - 1.030 LAB URINALYSIS - AUTOMATED METHOD 05/30/2025 12:58 AM EDT [facility] pH, Urine 6.5 5.0 - 8.0 LAB URINALYSIS - AUTOMATED METHOD 05/30/2025 12:58 AM EDT [facility] Protein, Urine Negative Negative mg/dL LAB URINALYSIS - AUTOMATED METHOD 05/30/2025 12:58 AM EDT [facility] Glucose, Urine Negative Negative mg/dL LAB URINALYSIS - AUTOMATED METHOD 05/30/2025 12:58 AM EDT [facility] Ketones, Urine Negative Negative mg/dL LAB URINALYSIS - AUTOMATED METHOD 05/30/2025 12:58 AM EDT [facility] Blood, Urine Moderate(A) Negative LAB URINALYSIS - AUTOMATED METHOD 05/30/2025 12:58 AM EDT [facility] Bilirubin, Urine Negative Negative LAB URINALYSIS - AUTOMATED METHOD 05/30/2025 12:58 AM EDT [facility] Urobilinogen, Urine 0.2 0.2 to 1.0 mg/dL LAB URINALYSIS - AUTOMATED METHOD 05/30/2025 12:58 AM EDT [facility] Leukocytes, Urine Negative Negative LAB URINALYSIS - AUTOMATED METHOD 05/30/2025 12:58 AM EDT [facility] Nitrite, Urine Negative Negative LAB URINALYSIS - AUTOMATED METHOD 05/30/2025 12:58 AM EDT [facility] RBC, Urine <1 0 to 3 /HPF LAB URINALYSIS - AUTOMATED METHOD 05/30/2025 12:58 AM EDT [facility] Comment:This result was prev iously suppressed from the chart. WBC, Urine 0 - 5 0 to 5 /HPF LAB URINALYSIS - AUTOMATED METHOD 05/30/2025 12:58 AM EDT [facility] Comment:This result was prev iously suppressed from the chart. Squamous Epithelial Cells 0 - 2 0 to 5 /HPF LAB URINALYSIS - AUTOMATED METHOD 05/30/2025 12:58 AM EDT [facility] Comment:This result was prev iously suppressed from the chart. Hyaline Casts 0 - 2 0 to 5 /LPF LAB URINALYSIS - AUTOMATED METHOD 05/30/2025 12:58 AM EDT [facility] Comment:This result was prev iously suppressed from the chart. Bacteria, Urine Negative Negative LAB URINALYSIS - AUTOMATED METHOD 05/30/2025 12:58 AM EDT [facility] Comment:This result was prev iously suppressed from the chart. Urine Urine specimen obtained by clean catch procedure / Unknown Non-blood Collection / Unknown 05/30/2025 12:31 AM EDT 05/30/2025 12:33 AM EDT us Theo Blank MD LAB URINE ORDERABLES Final Re sult [facility] [address] [place] [address] * XR Hand Right 3+ Views (05/30/2025 [...] female presents to the emergency department from [facility] for evaluation of deep laceration to anterior [...] signing this report, I, the attending physician, attadánthat I have personally reviewed the images/data for the aboveexamination(s) and agree with the final edited report. Drafted by Lobito Lutz MD on 05/30/2025 12:32 AM Final report signed by Josh rBeen MD on 05/30/2025 12:39 AM us Theo Blank MD IMG XR PROCEDURES Final Resul t * (ABNORMAL) Trauma shock panel blood gas (05/29/2025 11:43 PM EDT) pH, Venous 7.33 7.32 - 7.43 LAB HEMATOLOGY METHOD 05/29/2025 11:57 PM EDT [facility] Bicarbonate, Calculated, Venous 25 22 - 26 mmol/L LAB HEMATOLOGY METHOD 05/29/2025 11:57 PM EDT [facility] Base Excess, Venous -1.3 -2.0 - 3.0 mmol/L LAB HEMATOLOGY METHOD 05/29/2025 11:57 PM EDT [facility] Lactate, Venous, Whole Blood 2.5(H) 0.5 - 2.2 mmol/L LAB HEMATOLOGY METHOD 05/29/2025 11:57 PM EDT [facility] Blood Venous blood specimen / Unknown Venipuncture / Unknown 05/29/2025 11:43 PM EDT 05/29/2025 11:55 PM EDT us Theo Blank MD LAB BLOOD ORDERABLES Final Re sult Performing Organization Address City/[facility]/ZIP Co de Phone Number [facility] [address] [place] [address] * [facility] (05/29/2025 11:43 PM EDT) Only the most recent of2 resultswithin the time period is included. Extra Hold for add-ons 05/30/2025 2:01 AM EDT [facility] Comment:Auto resulted. Blood Venous blood specimen / Unknown 05/29/2025 11:43 PM EDT 05/29/2025 11:47 PM EDT us Theo Blank MD LAB BLOOD ORDERABLES Final Re sult [facility] [address] [place] [address] * (ABNORMAL) Ethyl Alcohol Plasma (05/29/2025 11:43 PM EDT) [facility] Ethanol Plasma 180(H) <10 mg/dL 05/30/2025 12:10 AM EDT [facility] Blood Venous blood specimen / Unknown Venipuncture / Unknown 05/29/2025 11:43 PM EDT 05/29/2025 11:46 PM EDT Narrative [facility] - 05/30/2025 12:10 AM EDT Enzymatic Assay: Performed on [employer]. Theo Blank MD LAB BLOOD ORDERABLES Final Re sult Performing Organization Address City/[facility]/ZIP Co de Phone Number [facility] [address] [place] [address] * (ABNORMAL) TEG Global Hemostasis with Lysis (05/29/2025 11:43 PM EDT) [facility] R, Lysis 3.5(L) 4.6 - 9.1 min 05/30/2025 12:53 AM EDT [facility] MA, Rapid, Lysis 62.5 52.0 - 70.0 mm 05/30/2025 12:53 AM EDT [facility] MA, Fibrinogen, Lysis 17.1 15.0 - 32.0 mm 05/30/2025 12:53 AM EDT [facility] LY30 0.1 0.0 - 2.6 % 05/30/2025 12:53 AM EDT [facility] Blood Venous blood specimen / Unknown Venipuncture / Unknown 05/29/2025 11:43 PM EDT 05/29/2025 11:57 PM EDT Theo Blank MD LAB BLOOD ORDERABLES Final Re sult Performing Organization Address City/[facility]/ZIP Co de Phone Number [facility] [address] [place] [address] * (ABNORMAL) APTT (PTT) (05/29/2025 11:43 PM EDT) [facility] aPTT 21(L) 25 - 35 sec 05/30/2025 12:04 AM EDT [facility] Blood Venous blood specimen / Unknown Venipuncture / Unknown 05/29/2025 11:43 PM EDT 05/29/2025 11:46 PM EDT Theo Blank MD LAB BLOOD ORDERABLES Final Re sult Performing Organization Address [facility]/ZIP Co de Phone Number [facility] [address] [place] [address] * PT-INR (05/29/2025 11:43 PM EDT) Prothrombin Time 12.9 12.0 - 14.3 sec 05/30/2025 12:03 AM EDT [facility] INR 1.0 0.9 - 1.1 05/30/2025 12:03 AM EDT [facility] Blood Venous blood specimen / Unknown Venipuncture / Unknown 05/29/2025 11:43 PM EDT 05/29/2025 11:46 PM EDT Narrative [facility] - 05/30/2025 12:03 AM EDT OPTIMAL INR RANGES FOR PATIENT ON ORAL ANTICOAGULANT THERAPY Prevention of venous thromboembolism INR 2.0 to 3.0 In patients with heart disease: Atrial fibrillation INR 2.0 to 3.0 Valvular heart disease INR 2.0 to 3.0 Tissue heart valves INR 2.0 to 3.0 Mechanical prosthetic valves INR 2.5 to 3.5 Prevention of recurrent [place] INR 2.5 to 3.5 Theo Blank MD LAB BLOOD ORDERABLES Final Re sult Performing Organization Address City/[facility]/ZIP Co de Phone Number [facility] [address] [place] [address] * (ABNORMAL) CBC w/o diff (05/29/2025 11:43 PM EDT) WBC Count 15.10(H) 3.70 - 10.30 10*3/uL LAB HEMATOLOGY METHOD 05/29/2025 11:49 PM EDT [facility] RBC Count 3.81(L) 3.90 - 5.20 10*6/uL LAB HEMATOLOGY METHOD 05/29/2025 11:49 PM EDT [facility] HGB 13.4 11.2 - 15.7 g/dL LAB HEMATOLOGY METHOD 05/29/2025 11:49 PM EDT [facility] HCT 38.6 34.0 - 45.0 % LAB HEMATOLOGY METHOD 05/29/2025 11:49 PM EDT [facility] Platelet Count 312 155 - 369 10*3/uL LAB HEMATOLOGY METHOD 05/29/2025 11:49 PM EDT [facility] MCV 101(H) 79 - 98 fL LAB HEMATOLOGY METHOD 05/29/2025 11:49 PM EDT [facility] MCH 35.2(H) 26.0 - 32.0 pg LAB HEMATOLOGY METHOD 05/29/2025 11:49 PM EDT [facility] MCHC 34.7 30.7 - 35.5 g/dL LAB HEMATOLOGY METHOD 05/29/2025 11:49 PM EDT [facility] RDW 13.0 11.5 - 14.5 % LAB HEMATOLOGY METHOD 05/29/2025 11:49 PM EDT [facility] MPV 9.2 8.8 - 12.5 fL LAB HEMATOLOGY METHOD 05/29/2025 11:49 PM EDT [facility] nRBC 0.0 <=0.0 per 100 WBCs LAB HEMATOLOGY METHOD 05/29/2025 11:49 PM EDT [facility] Blood Venous blood specimen / Unknown Venipuncture / Unknown 05/29/2025 11:43 PM EDT 05/29/2025 11:46 PM EDT us Theo Blank MD LAB BLOOD ORDERABLES Final Re sult [facility] [address] [place] [address] * Type and Screen (05/29/2025 11:43 PM EDT) ABO/Rh O Positive 05/29/2025 11:27 PM EDT [facility] Antibody Screen Negative 05/29/2025 11:27 PM EDT [facility] Specimen Expiration 06/01/2025 23:59 05/29/2025 11:27 PM EDT [facility] Blood Venous blood specimen / Unknown Venipuncture / Unknown 05/29/2025 11:43 PM EDT 05/30/2025 12:00 AM EDT us Theo Blank MD LAB BLOOD BANK TEST ORDERABLE S Final Result BLOOD BANK [address] [place] [address], * Test Qualitative Plasma (05/29/2025 11:43 PM EDT) Test Negative Negative 05/30/2025 12:10 AM EDT [facility] Blood Venous blood specimen / Unknown Venipuncture / Unknown 05/29/2025 11:43 PM EDT 05/29/2025 11:46 PM EDT Narrative [facility] - 05/30/2025 12:10 AM EDT Reference Range: Males and non- females: Negative. Theo Blank MD LAB BLOOD ORDERABLES Final Re sult [facility] [address] [place] [address] * (ABNORMAL) CMP (05/29/2025 11:43 PM EDT) Glucose, Plasma 88 74 - 99 mg/dL 05/30/2025 12:10 AM EDT [facility] BUN, Plasma 11 7 - 21 mg/dL 05/30/2025 12:10 AM EDT [facility] Creatinine, Plasma 0.80 0.60 - 1.10 mg/dL 05/30/2025 12:10 AM EDT [facility] BUN/Creatinine Ratio 14 05/30/2025 12:10 AM EDT [facility] Sodium, Plasma 141 136 - 145 mmol/L 05/30/2025 12:10 AM EDT [facility] Potassium, Plasma 3.5(L) 3.6 - 4.9 mmol/L 05/30/2025 12:10 AM EDT [facility] Chloride, Plasma 106 97 - 107 mmol/L 05/30/2025 12:10 AM EDT [facility] CO2, Plasma 22 22 - 29 mmol/L 05/30/2025 12:10 AM EDT [facility] Anion Gap 13 6 - 16 mmol/L 05/30/2025 12:10 AM EDT [facility] Total Calcium, Plasma 8.8(L) 8.9 - 10.2 mg/dL 05/30/2025 12:10 AM EDT [facility] Total Protein 7.3 6.3 - 7.9 g/dL 05/30/2025 12:10 AM EDT [facility] Albumin, Plasma 4.4 3.5 - 5.2 g/dL 05/30/2025 12:10 AM EDT [facility] AST, Plasma 99(H) 10 - 35 U/L 05/30/2025 12:10 AM EDT [facility] ALT, Plasma 188(H) 10 - 35 U/L 05/30/2025 12:10 AM EDT [facility] Alkaline Phosphatase, Plasma 82 35 - 104 U/L 05/30/2025 12:10 AM EDT [facility] Total Bilirubin, Plasma <0.2(L) 0.2 - 1.1 mg/dL 05/30/2025 12:10 AM EDT [facility] eGFRcr 93.9 mL/min/1.7 3m*2 05/30/2025 12:10 AM EDT [facility] Comment:Reported eGFRcr in m L/min/1.73m2 is based the CKD-EPI 2020 equation that does not use a race coefficient. Blood Venous blood specimen / Unknown Venipuncture / Unknown 05/29/2025 11:43 PM EDT 05/29/2025 11:46 PM EDT us Theo Blank MD LAB BLOOD ORDERABLES Final Re sult [facility] [address] [place] [address] from Last 3 Months Insurance [facility] MEDICAID [place] Care Teams Independent Distributor Relationship Specialty Start Date End Date Maegan Benjamin APRN [address] [place] [address] PCP - General 05/29/25
--- OUTSIDE RECORDS SUMMARY | 2025-08-04 14:20 | XMS_ITS | Encounter Summary ---
Author Organization Healthcare Address [address] [place] [address] Care Team Providers Care Computer Help Desk Specialist Name Role Phone Maegan Benjamin APRN Primary Care Provider +1- [phone] Encounter Details Date Type Department Care Team [...] documented as of this encounter Care Teams Computer Help Desk Specialist Relationship Specialty Start Date End Date Maegan Benjamin APRN [address] [place] [address] PCP - General 05/29/25 documented as of this encounter
--- OUTSIDE RECORDS SUMMARY | 2025-08-04 14:20 | XMS_ITS | Encounter Summary ---
Author Organization [facility] Address [address] [place] [address] Care Team Providers Care Commercial Insurance Underwriter Name Role Phone Provider, No Known Primary Care Provider Unavail able Encounter Details Date Type Department Care Team (Latest Contact Info) Description 07/07/2025 Travel Social History Tobacco Use Types Packs/Day [...] 6:06 PM EDT Lacey Prescott RN * [place] Suicide Severity Rating Scale (Screener/Recent Self-Report) Question Answer Date of Assessment Author 1. Wish to be (Past 1 Month) No 025 6:06 PM EDT Lacey Prescott, AUNDREA 2. Non-Specific Active Suici suzy Thoughts (Past 1 Month) No 07/07/2025 6:06 PM EDT Lacey Prescott RN 6. Suicidal Behavior (Lifetime) No 6:06 PM EDT Lacey Prescott RN documented as of this encounter Plan of Treatment Not on file documented as of this encounter Visit Diagnoses Not on filedocumented in this encounter Care Teams Commercial Insurance Underwriter Relationship Specialty Start Date End Date Provider, [place] [address] PCP - General Nurse Practitioner 07/07/25 documented as of this encounter
--- OUTSIDE RECORDS SUMMARY | 2025-08-04 14:20 | XMS_ITS | Encounter Summary ---
Author Organization Healthcare Address [address] [place] [address] Care Team Providers Care Sorting Machine Attendant Name Role Phone Maegan Benjamin APRN Primary Care Provider +1- [phone] Reason for Visit * Reason Onset Date Comments Med Refill 06/05/2025 Encounter Details Date Type Department Care Team (Late st Contact Info) Description 06/05/2025 Refill [facility] [address] [place] [address] Antonia Arora, [place] [address] [phone] Social History Tobacco Use Types Packs/Day Years [...] on filedocumented in this encounter Care Teams Sorting Machine Attendant Relationship Specialty Start Date End Date Maegan Benjamin APRN [address] [place] [address] PCP - General 05/29/25 documented as of this encounter
--- OUTSIDE RECORDS SUMMARY | 2025-08-04 14:20 | XMS_ITS | Encounter Summary ---
Author Organization Healthcare Address [address] [place] [address] Care Team Providers Care Business Development Coordinator Name Role Phone Maegan Benjamin APRN Primary Care Provider +1- [phone] Encounter Details Date Type Department Care Team [...] documented as of this encounter Care Teams Business Development Coordinator Relationship Specialty Start Date End Date Maegan Benjamin APRN [address] [place] [address] PCP - General 05/29/25 documented as of this encounter
--- OUTSIDE RECORDS SUMMARY | 2025-08-04 14:20 | XMS_ITS | Referral Summary ---
Author Organization [employer] ([place], [place], [place], [place], [place]) Address [address] [place] [address] Care Team Providers Care [employer] Technician Name Role Phone Unavailable Primary Care Provider Unavailabl e Encounters Date Type Department Care Team Description 07/04/2025 3:30 PM EDT Office Visit [facility] Urology - [place] [facility] [address] [place] [address] Marciano Chandler MD Retention of urine (Primary Dx) 07/03/2025 Telephone [facility] [address] [place] [address] Marciano Chandler MD Appointment (PHONE CALL) 06/06/2025 Outside Orders [facility] [address] [place] [address] Maegan Benjamin APRN Retention of urine (Primary Dx) from Last 3 Months Allergies Active Allergy Reactions Criticality Noted Date [...] tablet (100 mg total) by mouth daily. Active ibuprofen (MOTRIN) 800 MG tablet Take 1 tablet (800 mg total) by mouth every 8 (eight) hours as needed. Active lidocaine-prilocai ne (EMLA) 2.5-2.5 % cream Apply topically as needed. Active meloxicam (MOBIC) 15 MG tablet Take 1 tablet (15 mg total) by mouth daily. Active OLANZapine (ZyPREXA) 10 MG tablet Take 0.5 tablets (5 mg total) by mouth 2 (two) times daily. Active omeprazole (PriLOSEC) 20 MG capsule Take 1 capsule (20 mg total) by mouth daily. Active ondansetron (ZOFRAN-ODT) 4 MG disintegrating tablet 1 tablet (4 mg total) every 8 (eight) hours as needed. Active Social History Tobacco Use Types Packs/Day Years [...] Description 08/06/2025 10:00 AM EST Office Visit [facility] Urology - [address] [place] [address] Marciano Chandler MD [id number] [place] [id number] Procedures Procedure Name Priority Date/Time Associated Diagnosis Comments BLADDER SCAN - CLINIC PERFORMED Routine 07/04/2025 3:38 PM EDT Retention of urine from Last 3 Months Results * Bladder Scan - clinic performed (07/04/2025 3:38 PM EDT) Volume: 35ml Marciano Chandler MD UROLOGY ORDERABLES Final Result from Last 3 Months Insurance [employer] [facility] GISELE LEO
== END 2025-08-04 23:59 | disposition home or self-care (01) ==
LOC: RAD 14:18
PROVIDERS: PCP Nurse Practitioner Family; Visit Provider Nurse Practitioner Family
DX: J98.09 Other diseases of bronchus, not elsewhere classified (principal); R93.3 Abnormal findings on diagnostic imaging of other parts of digestive tract; R06.02 Shortness of breath; R14.0 Abdominal distension (gaseous)
CPT/HCPCS: 71046; 74019

== ENCOUNTER 2025-08-25 11:00 | Outpatient (RCR) | payer MEDICAID, SELFPAY ==
--- NOTE | 2025-08-18 10:35 | HMH.RHREAS ---
Rehab Reassessment Rehab OP Re-assessment Start: 08/18/25 10:08 Freq: Status: Active Protocol: Document 08/18/25 10:21 RMMARISELAHALL (Rec: 08/18/25 10:35 [id number] E-signed By Demarco Best OT QuickDASH Activities Please rate your ability to do the following activities in the last week by selecting the number below the appropriate response. 1. Open a tight or Severe difficulty new jar. 2. Do heavy Severe difficulty supervisor tunnel heading (e. g., wash alexander, floors). 3. Carry a shopping Moderate difficulty bag or briefcase. 4. Wash your back. Severe difficulty 5. Use a knife to Severe difficulty cut food. 6. Recreational Severe difficulty activities in which you take some force or impact through your arm, shoulder, or hand (e.g., golf, hammering, tennis, etc.). 7. During the past Quite a bit week, to what extent has your arm, shoulder or hand problem interfered with your normal social activities with family, friends , neighbors or groups? 8. During the past Moderately limited week, were you limited in your work or other regular daily activites as a result of your arm, shoulder or hand problem? 9. Arm, shoulder or Moderate hand pain. 10. Tingling (pins Moderate and needles) in your arm, shoulder or hand. 11. During the past Moderate difficulty week, how much difficulty have you had sleeping because of the pain in your arm, shoulder or hand? Quick DASH 39 Rehab Re-assessment Subjective Subjective I do see some improvements. Objective Objective Notes Pt has attended a limited amount of therapy sessions since initial evaluation (2 times). Each session, pt receives PROM manual stretching to right wrist and digits in order to improve overall functional motion; wrist flexion, extension, RD, and UD. Pt also engages in right wrist strengthening and cinnamon grinder strengthening exercises to increase functional ability. Modalities are provided in order to decrease pain/inflammation. Assessment Progress Assessment Progressing as Expected Assessment Notes Pt demonstrates improvement with overall AROM, strength , and cinnamon grinder strength at right hand/wrist. Therapist re- educated patient on the importance of attending therapy sessions weekly; pt verbalized understanding. Pt reports her worst pain is still reaching 5/10. Current R hand cinnamon grinder strength: [address] Pt will improve cinnamon grinder strength in R hand to 40 lbs, by reassessment. 2. Pt will improve endurance in TE to R hand for 15 minutes prior to rest, by reassessment. 3. Pt will improve subjective pain to 7/10 at worst in R hand, by reassessment. 4. Pt will be IND in HEP of theraputty and tendon glides to improve occupational performance, by reassessment. 5. Pt will improve MMT of R hand to 3+/5, by reassessment. 6. Pt will improve QuickDash Activities score to 40 or below, by reassessment OT Patient Goals OT Short Term Goals met; see assessment. Patient Goals OT Half-Way Patient New goals: Goals 1. Pt will improve cinnamon grinder strength in R hand to 60 lbs. 2. Pt will improve endurance in TE to R hand for 25 minutes prior to rest. 3. Pt will improve subjective pain to 5/10 at worst in R hand. 4. Pt will be IND in HEP of advanced strengthening exercises to improve occupational performance. 5. Pt will improve MMT of R hand to 4-/5. 6. Pt will improve QuickDash Activities score to 35 or below. Plan Plan Continue with OT plan of care at this time, in order to continue progressing towards improved functional use of R hand/wrist. Frequency of Therapy 2x's a week Duration of Therapy 4 more weeks Therapeutic Exercise Yes Including Home Exercise Program Manual Therapy Yes Techniques Neuromuscular Re- Yes education Therapeutic Yes Activities to Return to Previous Functional/Work Level ADL/Self Care Yes Education Thermal Modalities Yes Electrical Yes Stimulation Ultrasound/ Yes Phonophoresis Iontophoresis Yes Parrafin Yes Orthotics/Bracing/ Yes Splinting Massage Yes Eval/Re-Eval Yes Time and Billing Re-Eval Time 9 Re-Eval Billing 0 Units Charge for OT No reassessment? PHYSICIAN CERTIFICATION: I certify the specified therapy services for Lacey Mello are required, authorized, and reviewed every 30 days.
== END 2025-08-25 23:59 | disposition home or self-care (01) ==
LOC: OT 11:00
PROVIDERS: PCP Nurse Practitioner Family; Visit Provider Physician Assistant Surgical
DX: R20.0 Anesthesia of skin (principal); R20.2 Paresthesia of skin
CPT/HCPCS: 97014; 97110; 97140; G0283

== ENCOUNTER 2025-09-19 10:00 | Outpatient (RCR) | payer MEDICAID, SELFPAY | END 2025-09-19 23:59 | disposition home or self-care (01) | LOC: OT 10:00 | PROVIDERS: PCP Nurse Practitioner Family; Visit Provider Physician Assistant Surgical | DX: R20.2 Paresthesia of skin (principal); R20.0 Anesthesia of skin | CPT/HCPCS: 97014; 97110; 97140; G0283 ==

== ENCOUNTER 2025-09-23 09:19 | Day surgery (SDC) | payer MEDICAID, SELFPAY ==
[2025-09-23 09:41] VITALS: BP 130/86; PULSE 71; RESP 18; O2SAT 98; BMI 25.8
[2025-09-23] MEDS: DEXAMETHASONE 10MG/ML 1ML VIAL 10 MG (09:46)
[2025-09-23 09:48] VITALS: BP 133/79; PULSE 76; RESP 18; O2SAT 95
[2025-09-23 09:50] VITALS: BP 133/79; PULSE 76; RESP 18; O2SAT 95
--- NOTE | 2025-09-23 09:56 | P.PCN_ITS ---
Procedure Date: 09/23/25 Time: 19:45 Anesthesiologist:: Bo Dunham CRNA Complications:: None Pre-procedure Diagnosis:: Degenerative disc cervical spine multilevels. Cervical radiculopathy. Post-procedure Diagnosis:: Same. Indications for Procedure:: Patient is a very pleasant 44-year-old female who comes to clinic today for cervical epidural steroid injection. Patient describes posterior cervical neck pain as constant, dull, aching. She also reports persistent bilateral shoulder and arm radicular symptoms. She rates her pain today 6/10. Procedure Details:: Procedure:Cervical epidural steroid injection Informed consent was obtained and the risks and benefits of the procedure were explained to the patient. The patient was taken to the procedure room and noninvasive monitors placed, including noninvasive blood pressure cuff and pulse oximeter. The neck was prepped using Chloraprep as a cleansing solution. The C6- C7 interspace was viewed using fluroscopy. The skin and subcutaneous tissues were anesthetized using lidocaine 1.5% and a 25-gauge needle. After this an 18- gauge Touhy epidural needle was placed into the C6-C7 interspace under fluroscopy guidance and advanced using loss of resistance to air until the epi dural space was encountered. After confirmation of needle placement in the epidural space using contrast dye, dexamethasone 10 mg ( 1 ML) was incrementally injected into the cervical epidural space.~ The patient tolerated the procedure well with no complications. The patient was observed in the Pain Clinic and then discharged home neurologically intact. Plan and Disposition:: Patient was discharged without incident.
[2025-09-23 09:57] VITALS: BP 117/83; PULSE 70; O2SAT 96
[2025-09-23 10:31] LABS: Hemoglobin A1C 5.1 % (4.0-6.0)
[2025-09-23 10:45] LABS: Cholesterol 172 mg/dl (140-200); HDL Cholesterol 68 mg/dl (40-60); Triglycerides 134 mg/dl (30-150)
[2025-09-23 11:15] LABS: Thyroid Stimulating Hormone 1.51 uIU/mL (0.465-4.68)
[2025-09-24 08:14] LABS: Insulin Level Total 62.7 uIU/mL (2.6-24.9); Testosterone,Total 36 ng/dL (4-50)
[2025-09-24 12:26] LABS: FSH 8.2 mIU/mL (.); LH 7.6 mIU/mL (.)
== END 2025-09-23 09:57 | disposition home or self-care (01) ==
PROVIDERS: Obstetrics & Gynecology; PCP Nurse Practitioner Family; Visit Provider Nurse Anesthetist, Certified Registered
DX: M47.22 Other spondylosis with radiculopathy, cervical region (principal); Z98.1 Arthrodesis status; F17.210 Nicotine dependence, cigarettes, uncomplicated; I10 Essential (primary) hypertension; K21.9 Gastro-esophageal reflux disease without esophagitis
CPT/HCPCS: 36415; 62321; 80061; 82670; 83001; 83002; 83036; 83525; 84403; 84443; J1100